=== PATIENT | female | born 1975 | race Asian ===

== ENCOUNTER 2017-11-10 00:08 | Outpatient (CLI) | payer OTHER, SELFPAY ==
--- NOTE | 2017-11-10 13:56 | DI.MAMMO_ITS ---
SYMPTOMS/DIAGNOSIS: 6-MO F/U LEFT BREAST MAMMO LEFT MAMMOGRAM: This is a six-month followup, which is compared with exams from March and April 2018. The breasts are composed of heterogeneously dense fibroglandular tissue, breast density category C. No focal mass is identified. Dense tissue is again noted in the upper outer quadrant. There are no suspicious calcifications. IMPRESSION: Category 2, negative mammogram with benign findings. Bilateral screening should be resumed in six months. [facility] ASSESSMENT OF FINDINGS: Negative with benign findings. Category 2. Patient will receive a letter notifying them of these results. Bi-RADS category C. The breasts are heterogeneously dense, which may obscure small masses.
== END 2017-11-10 00:28 ==
PROVIDERS: PCP Family Medicine; Visit Provider Obstetrics & Gynecology Gynecology
DX: Z12.31 Encounter for screening mammogram for malignant neoplasm of breast (principal); R92.8 Other abnormal and inconclusive findings on diagnostic imaging of breast; N64.59 Other signs and symptoms in breast
CPT/HCPCS: 77061; 77065; G0279

== ENCOUNTER 2018-07-13 16:18 | Outpatient (REF) | payer OTHER, SELFPAY | END 2018-07-13 16:38 | LOC: LBN 16:18 | PROVIDERS: PCP Family Medicine; Visit Provider Nurse Practitioner Women's Health | DX: R30.0 Dysuria (principal) | CPT/HCPCS: 87086 ==

== ENCOUNTER 2018-08-31 18:21 | Outpatient (REF) | payer OTHER, SELFPAY | END 2018-08-31 18:41 | LOC: LBN 18:21 | PROVIDERS: PCP Family Medicine; Visit Provider Obstetrics & Gynecology | DX: N89.8 Other specified noninflammatory disorders of vagina (principal) | CPT/HCPCS: 87480; 87510; 87660 ==

== ENCOUNTER 2018-09-21 20:16 | Outpatient (REF) | payer OTHER, SELFPAY | END 2018-09-21 20:36 | LOC: LBN 20:16 | PROVIDERS: PCP Family Medicine; Visit Provider Obstetrics & Gynecology | DX: B37.9 Candidiasis, unspecified (principal) | CPT/HCPCS: 87480; 87510; 87660 ==

== ENCOUNTER 2018-11-01 09:47 | Outpatient (CLI) | payer OTHER, SELFPAY ==
[2018-11-01 10:42] LABS: Glucose 96 mg/dL (70-100)
[2018-11-02 11:11] LABS: Hep B Core Antibody Negative (NEGAT)
[2018-11-02 11:53] LABS: Syphilis Serology (RPR) Negative (Negative)
[2018-11-02 12:07] LABS: HIV-1/2 Ag & Ab Screen Negative (NEGAT)
[2018-11-02 14:08] LABS: Hepatitis Be Antigen Negative (Negative)
== END 2018-11-01 10:07 ==
PROVIDERS: PCP Family Medicine; Visit Provider Obstetrics & Gynecology
DX: Z11.3 Encounter for screening for infections with a predominantly sexual mode of transmission (principal); Z72.51 High risk heterosexual behavior; Z83.3 Family history of diabetes mellitus; Z11.4 Encounter for screening for human immunodeficiency virus [HIV]
CPT/HCPCS: 82947; 86704; 87389; 86592; 87350; 87480; 87510; 87660

== ENCOUNTER 2018-11-01 10:19 | Outpatient (REF) | payer OTHER, SELFPAY ==
--- NOTE | 2018-11-01 09:40 | PAPFT_PTH ---
PATIENT: Sena Child LOC: [facility] U#:[id number] AGE/SX: 43/F ROOM: RE11/01/[address]: Abi Covarrubias MD : 1975 BED: DIS: 11/01/2018 SPEC #: [id number] RECD: 11/01/18 12:54 STATUS: GERARD REAlbertina #: [id number] ZAK: 11/01/18 09:[address]: Abi Covarrubias DEPT: [facility] Cytology RECD BY: Yohana Granado ENTERED: 11/01/18 12:54 SP TYPE: PAPFT OTHR DR: Miriam Wright Tissues: 1 - CX/ENDOCX FOR PAP SMEARS Procedures: PAP THIN PREP/UVM Screening HPV DNA PROBE Comments: [id number] (CHLAMYDIA/GC)
[2018-11-02 13:38] LABS: GC Result Negative; Specimen Description SEE COMMENTS
[2018-11-02 15:41] LABS: Chlamydia Result Positive
== END 2018-11-01 10:39 ==
LOC: LBN 10:19
PROVIDERS: PCP Family Medicine; Visit Provider Obstetrics & Gynecology
DX: Z12.4 Encounter for screening for malignant neoplasm of cervix (principal); Z11.51 Encounter for screening for human papillomavirus (HPV); N89.8 Other specified noninflammatory disorders of vagina
CPT/HCPCS: 87491; 87591; 88142; 87480; 87510; 87624; 87660

== ENCOUNTER 2018-12-06 17:16 | Outpatient (REF) | payer OTHER, SELFPAY ==
[2018-12-10 13:34] LABS: Chlamydia Result Negative (Negative); GC Result Negative (Negative); Specimen Description CERVIX
== END 2018-12-06 17:36 ==
LOC: LBN 17:16
PROVIDERS: PCP Family Medicine; Visit Provider Obstetrics & Gynecology
DX: Z86.19 Personal history of other infectious and parasitic diseases (principal); Z11.3 Encounter for screening for infections with a predominantly sexual mode of transmission
CPT/HCPCS: 87491; 87591

== ENCOUNTER 2019-08-06 11:59 | Outpatient (REF) | payer OTHER, SELFPAY ==
[2019-08-06 23:51] LABS: COVID-19 RT-PCR UVMMC Result Negative (Negative)
== END 2019-08-06 12:19 ==
LOC: NCHCN 11:59
PROVIDERS: PCP Family Medicine; Visit Provider Family Medicine
DX: Z20.828 Contact with and (suspected) exposure to other viral communicable diseases (principal)
CPT/HCPCS: U0003

== ENCOUNTER 2020-01-30 09:16 | Outpatient (REF) | payer OTHER, SELFPAY ==
[2020-02-01 16:59] LABS: COVID-19 RT-PCR Result NEGATIVE (Negative)
== END 2020-01-30 09:36 ==
LOC: NCHCN 09:16
PROVIDERS: PCP Family Medicine; Visit Provider Nurse Practitioner Family
DX: Z11.59 Encounter for screening for other viral diseases (principal)
CPT/HCPCS: U0003

== ENCOUNTER 2021-05-25 16:48 | Outpatient (REF) | payer OTHER, SELFPAY ==
--- NOTE | 2021-05-25 13:30 | PAPFT_PTH ---
PATIENT: Sena Child LOC: [facility] U#:[id number] AGE/SX: 46/F ROOM: RE05/25/[address]: Cathy Molina : 1975 BED: DIS: 05/25/2021 SPEC #: [id number] RECD: 05/25/21 18:10 STATUS: GERARD REAlbertina #: [id number] ZAK: 05/25/21 13:[address]: Cathy Molina DEPT: [facility] Cytology RECD BY: Yohana Granado ENTERED: 05/25/21 18:10 SP TYPE: PAPFT OTHR DR: Miriam Wright Tissues: 1 - CX/ENDOCX FOR PAP SMEARS Procedures: PAP THIN PREP/UVM Screening HPV DNA PROBE Comments: [id number] (HPV 16 & 18/45)
== END 2021-05-25 16:49 | disposition home or self-care (01) ==
LOC: NCHCN 16:48
PROVIDERS: PCP Family Medicine; Visit Provider Nurse Practitioner Family
DX: Z00.00 Encounter for general adult medical examination without abnormal findings (principal); Z12.4 Encounter for screening for malignant neoplasm of cervix; Z11.51 Encounter for screening for human papillomavirus (HPV)
CPT/HCPCS: 88142; 87624

== ENCOUNTER 2021-06-16 11:16 | Outpatient (REF) | payer OTHER, SELFPAY ==
[2021-06-16 16:38] LABS: Anion Gap 9.2 mmol/L (3-11); BUN 10 mg/dL (7-18); CO2 27.8 mmol/L (21.0-32.0); CREATININE 0.7 mg/dL (0.55-1.02); Calcium 8.7 mg/dL (8.5-10.1); Calculated LDL 137 mg/dL (<100); Chloride 105 mmol/L (98-107); Cholesterol 202 mg/dL (<200); Glucose 85 mg/dL (74-106); HDL Cholesterol 46 mg/dL (40-60); Potassium 3.8 mmol/L (3.5-5.1); Sodium 142 mmol/L (136-145); TSH (W/Ref FT4) 1.01 uIU/mL (0.36-3.74); Triglyceride 95 mg/dL (<150)
== END 2021-06-16 11:17 | disposition home or self-care (01) ==
LOC: NCHCN 11:16
PROVIDERS: PCP Family Medicine; Visit Provider Nurse Practitioner Family
DX: Z00.00 Encounter for general adult medical examination without abnormal findings (principal); R63.5 Abnormal weight gain; Z13.220 Encounter for screening for lipoid disorders
CPT/HCPCS: 80048; 80061; 84443

== ENCOUNTER 2021-07-16 01:22 | Outpatient (CLI) | payer OTHER, SELFPAY ==
--- NOTE | 2021-07-16 08:28 | DI.MAMMO_ITS ---
Exam(s) MAMMO SCREENING EXAM: MAMMO SCREENING CLINICAL HISTORY: SCREENING, [facility], Z00.00 TECHNIQUE: Bilateral full field digital CC and MLO mammographic images were obtained with 3D tomosyn thesis and utilizing computer aided detection (CAD). COMPARISON: Available for comparison. FINDINGS: Masses/Architectural Distortion: None seen. Microcalcifications: No suspicious pleomorphic-type are seen. Skin Thickening/Nipple Retraction: None. IMPRESSION: 1. No significant interval change with no specific features of malignancy noted. 2. Unless there is more urgent need, screening mammography is recommended, as per [place] [employer] guidelines. BI-RADS Category 1 - Negative Breast Density - Category C - Heterogeneously dense Breast density category C or D implies that the patient has dense breast tissue. Dense breast tissue is very common and is not abnormal but dense breast tissue can make it harder to find cancer on a ma mmogram. Also, dense breast tissue may increase their breast cancer risk. This information about the result of the mammogram report was provided to the patient to raise their awareness. Use this report when you speak with the patient about their risks for breast cancer, which includes their family hist ory. At that time, you may recommend for more screening tests (Ultrasound or MRI) as they might be us eful based on their risk. A negative radiographic report should not delay biopsy if a dominant or clinically suspicious mass is present. Up to ten percent of cancers are not identified on mammography. A negative report may reinforce clinical impression. Adenosis and dense breasts may obscure an underlying neoplasm. False positive reports average 6 to 10%. Patient will receive a letter notifying them of these results.
== END 2021-07-16 01:42 ==
PROVIDERS: PCP Family Medicine; Visit Provider Nurse Practitioner Family
DX: Z00.00 Encounter for general adult medical examination without abnormal findings (principal); Z12.31 Encounter for screening mammogram for malignant neoplasm of breast
CPT/HCPCS: 77063; 77067

== ENCOUNTER 2021-08-27 15:24 | Outpatient (CLI) | payer OTHER, SELFPAY ==
--- NOTE | 2021-08-27 12:20 | DI.RAD_ITS ---
Exam(s) XR CHEST 2V PA LATERAL EXAM: XR CHEST 2V PA LATERAL CLINICAL HISTORY: INH MEDICATION TREATMENT COMPLETED AFTER + PPD. TECHNIQUE: 2D digital imaging was performed. COMPARISON: No exams were available for comparison FINDINGS: 2 views: Heart size is normal. The mediastinum is not widened. Lungs are clear. No infiltrates nor pleural effusions. IMPRESSION: No acute pulmonary findings. DATA REPOSITORY: RADIATION DOSE DELIVERED:
== END 2021-08-27 15:44 ==
PROVIDERS: PCP Family Medicine; Visit Provider Nurse Practitioner Family
DX: Z09 Encounter for follow-up examination after completed treatment for conditions other than malignant neoplasm (principal)
CPT/HCPCS: 71046

== ENCOUNTER 2022-09-23 00:22 | Outpatient (CLI) | payer BC, SELFPAY ==
--- NOTE | 2022-09-23 08:33 | DI.MAMMO_ITS ---
Exam(s) MAMMO SCREENING EXAM: MAMMO SCREENING CLINICAL HISTORY: screening TECHNIQUE: Bilateral full field digital CC and MLO mammographic images were obtained with 3D tomosyn thesis and utilizing computer aided detection (CAD). COMPARISON: Available for comparison. FINDINGS: Masses/Architectural Distortion: There are few well-circumscribed nodules in the breast. No suspicio us nodules or areas of architectural distortion are seen. Microcalcifications: No suspicious pleomorphic-type are seen. Skin Thickening/Nipple Retraction: None. IMPRESSION: 1. No significant interval change with no specific features of malignancy noted. 2. Unless there is more urgent need, screening mammography is recommended, as per [place] [employer] guidelines. BI-RADS Category 2 - Benign Findings Breast Density - Category C - Heterogeneously dense Breast density category C or D implies that the patient has dense breast tissue. Dense breast tissue is very common and is not abnormal but dense breast tissue can make it harder to find cancer on a ma mmogram. Also, dense breast tissue may increase their breast cancer risk. This information about the result of the mammogram report was provided to the patient to raise their awareness. Use this report when you speak with the patient about their risks for breast cancer, which includes their family hist ory. At that time, you may recommend for more screening tests (Ultrasound or MRI) as they might be us eful based on their risk. A negative radiographic report should not delay biopsy if a dominant or clinically suspicious mass is present. Up to ten percent of cancers are not identified on mammography. A negative report may reinforce clinical impression. Adenosis and dense breasts may obscure an underlying neoplasm. False positive reports average 6 to 10%. Patient will receive a letter notifying them of these results.
== END 2022-09-23 00:42 ==
PROVIDERS: PCP Family Medicine; Visit Provider Advanced Practice Midwife
DX: Z12.31 Encounter for screening mammogram for malignant neoplasm of breast (principal)
CPT/HCPCS: 77063; 77067

== ENCOUNTER 2023-01-30 15:50 | Outpatient (REF) | payer BC, SELFPAY ==
[2023-01-30 18:42] LABS: HCT 45.7 % (36.0-46.0); HGB 15.8 g/dL (11.2-15.7); MCH 29.9 pg (27.0-33.0); MCHC 34.6 % (32.0-36.0); MCV 87 fL (80-95); MPV 10.1 fL (8.0-11.0); Platelet Count 342 10^3/uL (130-400); RBC 5.28 10^6/uL (3.93-5.22); RDW 11.9 % (11.7-14.6); RDW-SD 37.5 fL; WBC 8.67 10^3/uL (4.4-10.8)
[2023-01-30 18:55] LABS: ALT 42 U/L (14-59); AST 29 U/L (15-37); Alkaline Phosphatase 74 U/L (46-116); Anion Gap 4.8 mmol/L (3-11); BUN 8 mg/dL (7-18); Bilirubin, Total 0.5 mg/dL (0.2-1.0); CO2 30.2 mmol/L (21.0-32.0); Calcium 9.9 mg/dL (8.5-10.1); Calculated LDL 132 mg/dL (<100); Chloride 103 mmol/L (98-107); Cholesterol 209 mg/dL (<200); Estimated GFR 70.36 (mL/min/1.73m2); Glucose 138 mg/dL (74-106); HDL Cholesterol 48 mg/dL (40-60); Potassium 3.8 mmol/L (3.5-5.1); Sodium 138 mmol/L (136-145); Total Protein 8.8 g/dL (6.4-8.2); Triglyceride 146 mg/dL (<150)
== END 2023-01-30 15:51 | disposition home or self-care (01) ==
LOC: NCHCN 15:50
PROVIDERS: PCP Family Medicine; Visit Provider Nurse Practitioner Family
DX: R00.0 Tachycardia, unspecified (principal); N95.8 Other specified menopausal and perimenopausal disorders; Z13.220 Encounter for screening for lipoid disorders
CPT/HCPCS: 80053; 80061; 85027

== ENCOUNTER → 2023-03-30 03:03 | Outpatient (CLI) | payer OTHER, SELFPAY ==
--- NOTE | 2023-03-30 13:50 | DI.MRI_ITS ---
Exam(s) MR UPPER JOINT RT WO EXAM: MR UPPER JOINT RT WO CLINICAL HISTORY: INJURY,RT SHOULDER PAIN,M25.519,? BICEPS TENDON TEAR/FRAY TECHNIQUE: Multiplanar multisequence MRI of the shoulder was performed. COMPARISON: There are no plain films of the shoulder available at the time of this MRI interpretatio n. FINDINGS: MARROW:There is no evidence of fracture, Hill-Sachs deformity, nor ominous osseous lesions. There is small degenerative subarticular cysts in the posterolateral aspect of the humeral head, measuring 7 x 5 x 4 mm. There is no surrounding bone edema in the humeral head. GLENOHUMERAL JOINT: No joint effusion nor obvious loose intra-articular bodies. No chondral defects. No osteophytes. No degenerative subarticular cysts seen in the osseous glenoid. No evidence of cap sular tear. The inferior glenohumeral ligament is intact. ROTATOR CUFF MECHANISM: AC JOINT/ACROMIUM: No obvious degenerative changes in the AC joint.. There is no evidence of os acromiale. Supraspinatus: Intact. No evidence of tear nor muscle atrophy. Infraspinatus: Slight thickening of the tendon and tendinosis signal evident but no full-thickness te ar. No fluid in the overlying subacromial bursa. Teres Minor: Intact. No evidence of tear nor muscle atrophy. Subscapularis/anterior cuff: Intact. No abnormal signal at the level of the multipennate insertional fibers. No significant tear nor atrophy. BICEPS TENDON: Exhibits normal position within the intertubercular groove. However, there appears to be an element of lung to 2 normal split tearing of the tendon within the intertubercular groove. No full-thickness tear evident. There is mild amount of fluid in the tendon sheath within the intertubercular groove. LABRUM: There is no abnormal signal in the superior labrum posterior to the biceps insertion site. N o evidence of SLAP tear. The posterior labrum is intact. Inferior labrum is intact. There is sligh t irregularity of the anterior superior labrum but no prominent tear. LABROLIGAMENTOUS/CAPSULAR COMPLEX: There is no evidence of avulsion of the anterior-inferior labrum, capsule, inferior glenohumeral liga ment complex nor disruption of the scapular periosteum to suggest the presence of a Bankart lesion. QUADRILATERAL SPACE: No evidence of mass in the region of the axillary nerve and dorsal circumflex hu meral vessels. Visualized triceps muscle at this level appears unremarkable. IMPRESSION: 1. There is tendinosis signal in the infraspinatus tendon with increased signal in thickness of the t endon at its insertional aspect but no evidence of full-thickness tear. The supraspinatus appears un remarkable as does the subscapularis/anterior cuff 2. There is an element of longitudinal split tearing of the biceps tendon within the intertubercular groove. There is no full-thickness tear nor retraction. There is mild tenosynovitis. There are no loose intra-articular bodies within the biceps tendon sheath. 3. Mild irregularity of the anterosuperior labrum but without a distinct obvious labral tear. Also n o paralabral cyst evident. DATA REPOSITORY:
== END ==
PROVIDERS: PCP Family Medicine; Visit Provider Nurse Practitioner Family
DX: S46.211A Strain of muscle, fascia and tendon of other parts of biceps, right arm, initial encounter (principal); X58.XXXA Exposure to other specified factors, initial encounter; Y99.0 Civilian activity done for income or pay
CPT/HCPCS: 73221

== ENCOUNTER 2024-03-07 15:04 | Outpatient (REF) | payer BC, SELFPAY ==
--- NOTE | 2024-03-07 11:40 | PAPFT_PTH ---
PATIENT: Sena Child LOC: [facility]#:[id number] AGE/SX: 49/F ROOM: RE03/07/[address]: Ingris Mccoy : 1975 BED: DIS: 03/07/2024 SPEC #: [id number] RECD: 03/07/24 18:14 STATUS: POLAAndrew REQ #: [id number] ZAK: 03/07/24 11:[address]: Ingris Mccoy DEPT: [facility] Cytology RECD BY: Yohana Granado ENTERED: 03/07/24 18:14 SP TYPE: PAPFT OTHR DR: Miriam Wright Tissues: 1 - CX/ENDOCX FOR PAP SMEARS Procedures: PAP THIN PREP/UVM Screening HPV DNA PROBE Comments: [id number] (HPV 16 & 18/45)
--- OUTSIDE RECORDS SUMMARY | 2024-03-07 15:11 | XMS_ITS | Encounter Summary ---
Author Organization [facility] Address [address] [place] [address] Care Team Providers Care Wind Turbine Installer Name Role Phone Miriam Wright MD Primary Care Provider [phone] Encounter Details Date Type Department Care Team (Late st Contact Info) Description 01/30/2020 Lab Requisition [facility] Pathology & Laboratory Medicine - [address] [id number] Outr Resulting Lab, Provider Social History Tobacco Use Types Packs/Day Years Used Date Smoking Tobacco: Never Assessed Comments Unknown Sex and Gender Information Value Date Recorded Sex Assigned at Not on file Legal Sex Female 18:51 EST Gender Identity Not on file Sexual Orientation Not on file documented as of this encounter Plan of Treatment Not on file documented as of this encounter Procedures Procedure Name Priority Date/Time Associated Diagnosis Comments DO NOT ORDER STANDALONE - BROAD COVID TEST Today 01/30/2020 9:08 EST COVID-19 TESTING Routine 01/30/2020 9:08 EST documented in this encounter Results * DO NOT ORDER STANDALONE - BROAD COVID TEST (01/30/2020 9:08 EST) COVID-19 rt-PCR Result NEGATIVE Negative 02/01/2020 16:54 EST [facility] Comment: 2019-novel Coronavirus (2019-nCoV) not detected by the qRT-PCR assay. Consider testing for other respiratory viruses or re-collecting for 2019-nCoV testing. Note: Optimum timing for peak viral levels during infections caused by 2019-nCoV have not been determined. Collection of multiple specimens from the same patient may be necessary to detect the virus. Limitations Positive results are indicative of active infection with SARS-CoV-2 but do not rule out bacterial infection or co-infection with other viruses. The agent detected may not be the definite cause of disease. In addition, detection of viral RNA may not indicate the presence of infectious virus or that SARS-CoV-2 is the causative agent for clinical symptoms. Negative results do not preclude SARS-CoV-2 infection and should not be used as the sole basis for patient management decisions. Negative results must be combined with clinical observations, patient history, and epidemiological information. False negative results may also occur if amplification inhibitors are present in the specimen or if inadequate numbers of organisms are present in the specimen. Optimum specimen types and timing for peak viral levels during infections caused by SARS-CoV-2 have not been fully determined. Collection of multiple specimens (types and time points) from the same patient may be necessary to detect the virus. The test was validated for use with upper respiratory specimens obtained via nasopharyngeal or oropharyngeal swabs in VTM, UTM, M4, M5, M6, saline, and MTM media. The performance of this test has not been established for other specimens. Specimens collected using other FDA recommended Specimen Collection Materials listed in the FDA COVID-19 [employer] communication (May 23, 2019) are processed with the caveat that they were not all validated for use with this test and the result must be interpreted in this context. Furthermore, a false negative results may occur if a specimen is improperly collected, transported or handled. If the virus mutates in the RT-PCR target region, SARS-CoV-2 may not be detected or may be detected less predictably. Inhibitors or other types of interference may produce a false negative result. An interference study evaluating the effect of common cold medications was not performed. This test is not FDA-cleared but its performance characteristics were established by our CLIA-certified, CAP-accredited, high complexity laboratory in accordance with CLIA regulations, [employer] [place] [employer] (CAP) guidelines (May 16, 2019), and FDA guidance (Apr 27, 2019). This test is only for use under the Food and Drug Administration's Emergency Use Authorization. Swab ENTIRE NASOPHARYNX / Unknown 01/30/2020 9:08 EST 01/30/2020 22:50 EST us Provider Outr Resulting Lab MICROBIOLOGY - GENER AL ORDERABLES Final Result [facility] [place] * COVID-19 TESTING (01/30/2020 9:08 EST) COVID-19 rt-PCR Result NEGATIVE Negative 02/01/2020 16:54 EST [facility] Comment: 2019-novel Coronavirus (2019-nCoV) not detected by the qRT-PCR assay. Consider testing for other respiratory viruses or re-collecting for 2019-nCoV testing. Note: Optimum timing for peak viral levels during infections caused by 2019-nCoV have not been determined. Collection of multiple specimens from the same patient may be necessary to detect the virus. Limitations Positive results are indicative of active infection with SARS-CoV-2 but do not rule out bacterial infection or co-infection with other viruses. The agent detected may not be the definite cause of disease. In addition, detection of viral RNA may not indicate the presence of infectious virus or that SARS-CoV-2 is the causative agent for clinical symptoms. Negative results do not preclude SARS-CoV-2 infection and should not be used as the sole basis for patient management decisions. Negative results must be combined with clinical observations, patient history, and epidemiological information. False negative results may also occur if amplification inhibitors are present in the specimen or if inadequate numbers of organisms are present in the specimen. Optimum specimen types and timing for peak viral levels during infections caused by SARS-CoV-2 have not been fully determined. Collection of multiple specimens (types and time points) from the same patient may be necessary to detect the virus. The test was validated for use with upper respiratory specimens obtained via nasopharyngeal or oropharyngeal swabs in VTM, UTM, M4, M5, M6, saline, and MTM media. The performance of this test has not been established for other specimens. Specimens collected using other FDA recommended Specimen Collection Materials listed in the FDA COVID-19 [employer] communication (May 23, 2019) are processed with the caveat that they were not all validated for use with this test and the result must be interpreted in this context. Furthermore, a false negative results may occur if a specimen is improperly collected, transported or handled. If the virus mutates in the RT-PCR target region, SARS-CoV-2 may not be detected or may be detected less predictably. Inhibitors or other types of interference may produce a false negative result. An interference study evaluating the effect of common cold medications was not performed. This test is not FDA-cleared but its performance characteristics were established by our CLIA-certified, CAP-accredited, high complexity laboratory in accordance with CLIA regulations, [employer] [place] [employer] (CAP) guidelines (May 16, 2019), and FDA guidance (Apr 27, 2019). This test is only for use under the Food and Drug Administration's Emergency Use Authorization. Performing Lab [facility] 02/01/2020 16:54 EST [facility] Swab 01/30/2020 9:08 EST 01/30/2020 22:50 EST us Provider Outr Resulting Lab MICROBIOLOGY - GENER AL ORDERABLES Final Result [facility] [address] [place] [address] [facility] [place] documented in this encounter Visit Diagnoses Not on filedocumented in this encounter Care Teams Wind Turbine Installer Relationship Specialty Start Date End Date Miriam Wright MD [address] [place] [phone] PCP - General 10/23/14 documented as of this encounter
--- OUTSIDE RECORDS SUMMARY | 2024-03-07 15:11 | XMS_ITS | Referral Summary ---
Author Organization [facility] Address [address] [place] [address] Care Team Providers Care Account Services Coordinator Name Role Phone Miriam Wright MD Primary Care Provider [phone] Social History Tobacco Use Types Packs/Day Years Used Date Smoking Tobacco: Never Assessed Comments Unknown Sex and Gender Information Value Date Recorded Sex Assigned at Not on file Legal Sex Female 18:51 EST Gender Identity Not on file Sexual Orientation Not on file Plan of Treatment Not on file Care Teams Account Services Coordinator Relationship Specialty Start Date End Date Miriam Wright MD [address] [place] [address] [address] [place] [id number] PCP - General 10/23/14
--- OUTSIDE RECORDS SUMMARY | 2024-03-07 15:11 | XMS_ITS | Encounter Summary ---
Author Organization [facility] Address [address] [place] [address] Care Team Providers Care Advertising Material Distributor Name Role Phone Md GUI Lynn Primary Care Provider Unavaila ble Encounter Details Date Type Department Care Team (Latest Contact Info) Description 10/21/2014 10:21 EDT - 10/21/2014 23:59 EDT Hospital Encounter [address] [address] Unknown, Provider, Discharge Disposition: Home or Self Care Social History Tobacco Use Types Packs/Day Years Used Date Smoking Tobacco: Never Assessed Comments Unknown Sex and Gender Information Value Date Recorded Sex Assigned at Not on file Legal Sex Female 18:51 EST Gender Identity Not on file Sexual Orientation Not on file documented as of this encounter Discharge Disposition Disposition Code Departure Means Destination Home or Self Senior Living documented in this encounter Plan of Treatment Not on file documented as of this encounter Visit Diagnoses Not on filedocumented in this encounter Care Teams Advertising Material Distributor Relationship Specialty Start Date End Date Md Lynn MD PCP - General 03/01/10 10/22/14 documented as of this encounter
--- OUTSIDE RECORDS SUMMARY | 2024-03-07 15:11 | XMS_ITS | Encounter Summary ---
Author Organization [facility] Address [address] [place] [address] Care Team Providers Care Gas Truck Driver Name Role Phone Miriam Wright MD Primary Care Provider [phone] Encounter Details Date Type Department Care Team (Latest Contact Info) Description 05/26/2021 Lab Requisition [facility] Pathology & Laboratory Medicine - [facility] [address] [place] [address] Cathy Molina FNP [address] [place], [place] [id number] Encounter for general adult medical examination without abnormal findings; Encounter for screening for malignant neoplasm of cervix; Encounter for screening for human papillomavirus (HPV) Social History Tobacco Use Types Packs/Day Years [...] Procedure Name Priority Date/Time Associated Diagnosis Comments PAP TEST Today 05/25/2021 13:30 EDT Encounter for general adult medical examination without abnormal findings Encounter for screening for malignant neoplasm of cervix Encounter for screening for human papillomavirus (HPV) HPV GENOTYPES 16 AND 18/45 Today 05/25/2021 13:30 EDT Encounter for general adult medical examination without abnormal findings Encounter for screening for malignant neoplasm of cervix Encounter for screening for human papillomavirus (HPV) HPV DNA DETECTION WITH GENOTYPING, PCR Today 05/25/2021 13:30 EDT Encounter for general adult medical examination without abnormal findings Encounter for screening for malignant neoplasm of cervix Encounter for screening for human papillomavirus (HPV) documented in this encounter Results * HPV GENOTYPES 16 AND 18/45 (05/25/2021 13:30 EDT) HPV High Risk type 16, PCR Negative Negative 06/03/2021 14:39 EDT [facility] HPV18/45 RNA (HPV18/45) Negative Negative 06/03/2021 14:39 EDT [facility] Papanicolaou smear specimen (specimen) CERVIX UTERI STRUCTURE / Unknown 05/25/2021 13:30 EDT 05/31/2021 17:36 EDT Cathy Molina [facility] MICROBIOLOGY - GENERAL ORDERAB LES Final Result Performing Organization Address City/[facility] Co de Phone Number [facility] [address] [place] [address] * (ABNORMAL) HUMAN PAPILLOMAVIRUS (HPV) DETECTION-HIGH RISK TYPES (05/25/2021 13:30 EDT) HPV other High Risk types, PCR Positive( A) Negative 06/03/2021 14:39 EDT [facility] Comment:E6 OR E7 mRNA from o ne or more types of HPV types 16,18,31,33,35,39,45,51,52,56,58,59,66, and 68 is detected by signal operator linguist mediated amplification. High and intermediate risk HPV types are associated with most squamous intraepithelial lesions and cervical cancers. Papanicolaou smear specimen (specimen) CERVIX UTERI STRUCTURE / Unknown 05/25/2021 13:30 EDT 05/31/2021 17:36 EDT Cathy Molina [facility] MICROBIOLOGY - GENERAL ORDERAB LES Final Result Performing Organization Address City/[facility]/ZIP Co de Phone Number [facility] [address] [place] [phone] * PAP TEST (05/25/2021 13:30 EDT) Specimens A. Cervix and/or Endocervix , ThinPrep Imaging System with Manual Evaluation 06/03/2021 14:40 [facility] Specimen Adequacy Satisfactory for Evaluation - transformation zone component present 06/03/2021 14:40 [facility] General Categorization Negative for intraepithelial lesion or malignancy 06/03/2021 14:40 [facility] Descriptive Diagnosis Reactive cellular changes associated with inflammation present (includes repair). 06/03/2021 14:40 [facility] Attestation By the signature below, the attending physician certifies that they have personally conducted a gross and/or microscopic examination of the described specimens and rendered or confirmed the above diagnosis. 06/03/2021 14:40 [facility] at 1439 Clinical History See below 06/04/19 14:40 [facility] HPV The result for the Human Papillomavirus (HPV) Detection-High Risk Types is Positive . E6 OR E7 mRNA from one or more types of HPV types 16,18,31,33,35,39 ,45,51,52,56,58,5 9,66, and 68 is detected by signal operator linguist mediated amplification. High and intermediate risk HPV types are associated with most squamous intraepithelial lesions and cervical cancers. Testing was performed on specimen [id number] and was resulted on 06/02/2021 0711 EDT by CEE, LAB INSTRUMENT RESULTS IN 06/03/2021 14:40 [facility] Genotyping 16 & 18/45 The results for the HPV Genotypes 16 and 18/45 are Negative for the HPV16 RNA and Negative for the HPV18/45 RNA (HPV18/45). Testing was performed on specimen [id number] and was resulted on 06/03/2021 1434 EDT by CEE, LAB INSTRUMENT RESULTS IN 06/03/2021 14:40 [facility] Performing Lab [facility] 06/03/2021 14:40 [facility] Scanned Images 06/03/2021 14:40 [facility] Papanicolaou smear specimen (specimen) CERVIX UTERI STRUCTURE / Unknown 05/25/2021 13:30 EDT 05/26/2021 11:44 EDT Cathy Jesse ELECTRIC REFRIGERATOR SERVICER PATHOLOGY ORDERABLES Final Res ult [facility] [address] [place] [address] documented in this encounter Visit Diagnoses Diagnosis Encounter for general adult medical examination without abnormal findings Unspecified general medical examination Encounter for screening for malignant neoplasm of cervix Screening for malignant neoplasm of the cervix Encounter for screening for human papillomavirus (HPV) Special screening examination for human papillomavirus (HPV) documented in this encounter Care Teams Gas Truck Driver Relationship Specialty Start Date End Date Miriam Wright MD [address] [place] [phone] PCP - General 10/23/14 documented as of this encounter
--- OUTSIDE RECORDS SUMMARY | 2024-03-07 15:11 | XMS_ITS | Encounter Summary ---
Author Organization [facility] Address [address] [place] [address] Care Team Providers Care Therapy Coordinator Name Role Phone Miriam Wright MD Primary Care Provider [phone] Encounter Details Date Type Department Care Team (Late st Contact Info) Description 03/28/2016 Results Only [facility] [phone] Holley Joseph MD [address] [place] [address] [place] [address] Social History Tobacco Use Types Packs/Day Years [...] Name Priority Date/Time Associated Diagnosis Comments PAP TEST- RESULT ONLY Routine 03/28/2016 0:00 EST documented in this encounter Results * PAP TEST- RESULT ONLY (03/28/2016 0:00 EST) Pathology Report: CYTOPATHOLOGY REPORT Reports generated via electronic interface contain original data; however they are lacking the format of the original report. Caution should be taken when reading/interpreti ng unformatted reports. Name: ? EDY MARIE ? Accession #: ? [id number] ? : ? 1975 (Age: 41) ??F ?Collect Date: ? 03/28/2016 ? Location: ? [facility] ? Receive Date: ? 03/29/2016 ? Provider: HOLLEY JOSEPH MD Copy to: MIRIAM WRIGHT MD ? Final Report SPECIMEN ADEQUACY ? Satisfactory for Evaluation - transformation zone component present GENERAL CATEGORIZATION ? Negative for Intraepithelial Lesion or Malignancy INTERPRETATION ? Fungal organisms present morphologically consistent with Annette species. Last Menstrual Period: 03/12/2016 Hormonal/Contracep tive status: Yes: Family planning Specimen/Source: ??Pap Test, Cervix, ThinPrep Imaging System with manual evaluation Document reviewed and electronically signed by: ? Kae Patton, ARNOL(ASCP) ? Report ??Date: 04/01/2016 16:37 HPV with Pap Test ? Date Ordered: ? 04/01/2016 ? Status: ?? Signed Out ?Date Complete: ? 04/04/2016 ? By: ??System Interface ? Date Reported: ? 04/04/2016 ? Interpretation RESULT: Negative for HPV. No E6 or E7 mRNA is detected from HPV types 16,18,31,33,35, 39,45,51,52,56,58, 59,66, and 68 by ground water contractor mediated amplification. Comments Document reviewed and electronically signed by: ? System Interface ? Report date: 04/04/2016 By the signature above, the attending physician certifies that he/she has personally conducted a gross and/or microscopic examination of the described specimens and rendered or confirmed the above diagnosis. End of Report [facility] 03/28/2016 03/29/2016 us Holley Joseph MD PATHOLOGY ORDERABLES Final Resu lt [facility] [address] [place] [address] documented in this encounter Visit Diagnoses Not on filedocumented in this encounter Care Teams Therapy Coordinator Relationship Specialty Start Date End Date Miriam Wright MD [address] [place] [phone] PCP - General 10/23/14 documented as of this encounter
--- OUTSIDE RECORDS SUMMARY | 2024-03-07 15:11 | XMS_ITS | Encounter Summary ---
Author Organization [facility] Address [address] [place] [address] Care Team Providers Care Stripper And Taper Name Role Phone Miriam Wright MD Primary Care Provider [phone] Encounter Details Date Type Department Care Team ([facility] st Contact Info) Description 11/01/2018 Results Only [facility] [phone] Nena Covarrubias MD [address] [place] [address] [place] [phone] Social History Tobacco Use Types Packs/Day Years [...] Diagnosis Comments PAP TEST- RESULT ONLY Routine 11/01/2018 0:00 EDT documented in this encounter Results * PAP TEST- RESULT ONLY (11/01/2018 0:00 EDT) Pathology Report: CYTOPATHOLOGY REPORT Reports generated via electronic interface contain original data; however they are lacking the format of the original report. Caution should be taken when reading/interpreti ng unformatted reports. Name: ? EDY MARIE ? Accession #: ? [id number] ? : ? 1975 (Age: 43) ??F ?Collect Date: ? 11/01/2018 ? Location: ? [facility] ? Receive Date: ? 11/05/2018 ? Provider: NENA COVARRUBIAS MD Copy to: MIRIAM WRIGHT MD ? Final Report SPECIMEN ADEQUACY ? Satisfactory for Evaluation - transformation zone component present - scant squamous epithelial component secondary to excessive blood GENERAL CATEGORIZATION ? Negative for Intraepithelial Lesion or Malignancy ?? Last Menstrual Period: 10/08/18 Hormonal/Contracep tive status: Yes Infection History: Neg for HPV: 08/2012 Other: Additional clinical information: 01/2010 NEG Specimen/Source: ??Pap Test, Cervix/Endocervix, ThinPrep Imaging System with manual evaluation Document reviewed and electronically signed by: ? ARNOL Guidry(ASCP) ? Report ??Date: 11/07/2018 14:39 HPV with Pap Test ? Date Ordered: ? 11/07/2018 ? Status: ?? Signed Out ?Date Complete: ? 11/08/2018 ? By: ??System Interface ? Date Reported: ? 11/08/2018 ? Interpretation RESULT: POSITIVE FOR HIGH OR INTERMEDIATE RISK HPV. E6 OR E7 mRNA from one or more types of HPV types 16,18,31, 33,35,39,45,51,52, 56,58,59,66, and 68 is detected by tooth grinder mediated amplification. High and intermediate risk HPV types are associated with most squamous intraepithelial lesions and cervical cancers. Comments Document reviewed and electronically signed by: ? System Interface ? Report date: 11/08/2018 By the signature above, the attending physician certifies that he/she has personally conducted a gross and/or microscopic examination of the described specimens and rendered or confirmed the above diagnosis. End of Report [facility] 11/01/2018 11/05/2018 us Nena Covarrubias MD PATHOLOGY ORDERABLES Final Resul t [facility] [address] [place] [address] documented in this encounter Visit Diagnoses Not on filedocumented in this encounter Care Teams Stripper And Taper Relationship Specialty Start Date End Date Miriam Wright MD [address] [place] [phone] PCP - General 10/23/14 documented as of this encounter
--- OUTSIDE RECORDS SUMMARY | 2024-03-07 15:11 | XMS_ITS | Encounter Summary ---
Author Organization [facility] [place] [address] Care Team Providers Care Information And Data Architect Analyst Name Role Phone Miriam Wright MD Primary Care Provider [phone] Encounter Details Date Type Department Care Team (Late st Contact Info) Description 10/19/2014 Hospital Encounter [place] [phone] Alexia Gupta MD [facility] DR [place] [address] Social History Tobacco Use Types Packs/Day Years Used Date Smoking Tobacco: Never Smokeless Tobacco: Never Sex and Gender Information Value Date Recorded Sex Assigned at Not on file Gender Identity Not on file Sexual Orientation Not on file documented as of this encounter Last Filed Vital Signs Vital Sign Reading Time Taken Comments Blood Pressure 101/56 10/19/2014 6:30 PM EDT Pulse 113 10/19/2014 6:30 PM EDT Temperature 38 ??C (100.4 ??F) 10/19/2014 6:00 PM EDT Respiratory Rate 24 10/19/2014 6:30 PM EDT Oxygen Saturation 97% 10/19/2014 6:30 PM EDT Inhaled Oxygen Concentration - - Weight - - Height - - Body Mass Index - - documented in this encounter Progress Notes * Renae Coburn RN - 10/19/2014 6:01 PM EDT 1724 Patient Received from endoscopy after having a ERCP. Patient placed on monitors and alarms set. A second IV has been placed by to give an additional liter of IVF. LR infusing. 1800 1500cc of addition IV fluid infused. Dr. Gupta in to see patient. [facility] Monge made aware of patient's VS and has oked patient to go by ambulance.183 Patient meets discharge criteria. Report given to [facility] RN about endo by private security guard. Report given to Porfirio EMT and patient moved onto ambulance stretcher and discharged from PACU. documented in this encounter H&P Notes * Alexia Gupta MD - 10/19/2014 4:00 PM EDT Gastroenterology and Hepatology Pre-Procedure History and Physical Exam Procedure: ERCP: Indication: bile duct stone Patient admitted to [facility] yesterday for abdominal pain, elevated LFT's, jaundice. US and CT showed gallstones and CBD stone. Patient became febrile today to 38.5. She received cipro 400/flagyl 500 IV at 8am. EXAM: HEENT: Airway examined, oropharynx clear Mallampati Score: II (soft palate, uvula, fauces visible) LUNGS: Clear to auscultation HEART: Regular rate and rhythm, normal S1, S2 ABDOMEN: Normal bowel sounds, soft, tender epigastrium, non distended, A/P Proceed with the planned endoscopic procedure. ASA 1 - Normal health patient Sedation Plan: anesthesia Risks and benefits of the procedure explained to the patient. Consent signed. documented in this encounter Plan of Treatment Scheduled Orders Name Type Priority Associated Diagnoses Orde r Schedule XR ERCP Imaging Routine Once PRN (for Radiant use) for 1 Occurrences starting 10/19/2014 until 10/19/2014 documented as of this encounter Procedures Procedure Name Priority Date/Time Associated Diagnosis Comments ERCP (WRVU 5.85) 10/19/2014 4:28 PM EDT ? documented in this encounter Visit Diagnoses Not on filedocumented in this encounter Administered Medications Inactive Administered Medications - up to 3 most recent administrations Medication Order MAR Action Action Date Dose Rate Site indomethacin (INDOCIN) suppository 100 mg 100 mg, Rectal, ONCE, 1 dose, On 10/19/14 at 1715, Endoscopy (Day of Procedure), Routine Given 10/19/2014 5:15 PM EDT 100 mg ondansetron (ZOFRAN) 4 mg/2 mL injection 1 dose, Starting on 10/19/14 at 1745, Until 10/19/14 at 1750, RENAE COBURN: cabinet override ondansetron (ZOFRAN) injection 4 mg 4 mg, Intravenous, EVERY 30 MIN PRN, Starting on 10/19/14 at 1748, Until 10/19/14 at 1843, Nausea, May repeat 4 mg once in 30 minutes. If multiple antiemetics ordered, use ondansetron first and if ineffective use prochlorperazine second and if ineffective use promethazine, PACU Recovery Given 10/19/2014 5:50 PM EDT 4 mg documented in this encounter Care Teams Information And Data Architect Analyst Relationship Specialty Start Date End Date Miriam Wright MD [address] [place] [address] PCP - General 10/06/14 documented as of this encounter
--- OUTSIDE RECORDS SUMMARY | 2024-03-07 15:11 | XMS_ITS | Encounter Summary ---
Author Organization [facility] [place] [address] Care Team Providers Care Blow Torch Burner Name Role Phone Miriam Wright MD Primary Care Provider [phone] Encounter Details Date Type Department Care Team (Late st Contact Info) Description 10/18/2014 Orders [place] [phone] Julio Jay MD [facility] [place] [address] Social History Tobacco Use Types Packs/Day Years Used Date Smoking Tobacco: Never Assessed Sex and Gender Information Value Date Recorded Sex Assigned at Not on file Gender Identity Not on file Sexual Orientation Not on file documented as of this encounter Plan of Treatment Not on file documented as of this encounter Procedures Procedure Name Priority Date/Time Associated Diagnosis Comments FILM LIBRARY STORAGE ONLY ULTRASOUND STUDY Routine 10/18/2014 10:35 AM EDT documented in this encounter Results * Film Library- Storage only Ultrasound Study (10/18/2014 10:35 AM EDT) Anatomical Region Laterality Modality Other 10/18/2014 10:3 5 AM EDT Narrative 10/19/2014 10:46 AM EDT This is a Non-reportable exam Procedure Note CEE, UNSIGNED REPORT - 10/19/2014 This is a Non-reportable exam Julio Jay MD IMG FILM LIBRARY ORDERABLES documented in this encounter Visit Diagnoses Not on filedocumented in this encounter Care Teams Blow Torch Burner Relationship Specialty Start Date End Date Miriam Wright MD [facility] [address] [facility] [address] [place] [address] PCP - General 10/06/14 documented as of this encounter
--- OUTSIDE RECORDS SUMMARY | 2024-03-07 15:11 | XMS_ITS | Encounter Summary ---
Author Organization [facility] Address [address] [place] [address] Care Team Providers Care Manager Of Manufacturing Name Role Phone Md GUI Lynn Primary Care Provider Unavaila ble Encounter Details Date Type Department Care Team (Late st Contact Info) Description 09/20/2012 Results Only [facility] Services - [facility] [address] [place], [place] [phone] Holley Joseph MD [address] [place] [address] [place] [address] Social History Tobacco Use Types Packs/Day Years [...] Diagnosis Comments PAP TEST- RESULT ONLY Routine 09/20/2012 0:00 EDT documented in this encounter Results * PAP TEST- RESULT ONLY (09/20/2012 0:00 EDT) Pathology Report: CYTOPATHOLOGY REPORT Reports generated via electronic interface contain original data; however they are lacking the format of the original report. Caution should be taken when reading/interpreti ng unformatted reports. Name: ? EDY MARIE ? Accession #: ? [id number] ? : ? 1975 (Age: 37) ??F ?Collect Date: ? 09/20/2012 ? Location: ? [facility] ? Receive Date: ? 09/24/2012 ? Provider: HOLLEY JOSEPH MD Copy to: KARI PERAZA MD ? Final Report SPECIMEN ADEQUACY ? Satisfactory for Evaluation - transformation zone component present GENERAL CATEGORIZATION ? Negative for Intraepithelial Lesion or Malignancy INTERPRETATION ? Fungal organisms present morphologically consistent with Annette species. Specimen/Source: ??Pap Test, Cervix/Endocervix, ThinPrep Imaging System with manual evaluation Document reviewed and electronically signed by: ? Nannette Taylor, ARNOL(ASCP) ? Report ??Date: 10/03/2012 11:34 HPV with Pap Test ? Date Ordered: ? 10/03/2012 ? Status: ?? Signed Out ?Date Complete: ? 10/05/2012 ? By: ??System Interface ? Date Reported: ? 10/05/2012 ? Interpretation RESULT: Negative for HPV. No E6 or E7 mRNA is detected from HPV types 16,18,31,33,35, 39,45,51,52,56,58, 59,66, and 68 by sales representative meats mediated amplification. Comments Document reviewed and electronically signed by: ? System Interface ? Report date: 10/05/2012 By the signature above, the attending physician certifies that he/she has personally conducted a gross and/or microscopic examination of the described specimens and rendered or confirmed the above diagnosis. End of Report [facility] 09/20/2012 09/24/2012 us Holley Joseph MD PATHOLOGY ORDERABLES Final Resu lt Performing Organization Address City/State/[facility] Co de Phone Number [facility] [address] [place] [address] documented in this encounter Visit Diagnoses Not on filedocumented in this encounter Care Teams Manager Of Manufacturing Relationship Specialty Start Date End Date Md Lynn MD PCP - General 03/01/10 10/22/14 documented as of this encounter
--- OUTSIDE RECORDS SUMMARY | 2024-03-07 15:11 | XMS_ITS | Encounter Summary ---
Author Organization [facility] Address [facility] [place] [address] Care Team Providers Care Transaction Advisory Services Manager Name Role Phone Miriam Wright MD Primary Care Provider [phone] Reason for Visit * Reason Comments Skin Check Encounter Details Date Type Department Care Team (Late st Contact Info) Description 12/11/2014 10:45 AM EDT Office Visit Dermatology at [address] [place] [address] Renzo Eddy MD [address] [facility] [place] [address] Vitiligo Social History Tobacco Use Types Packs/Day Years Used Date Smoking Tobacco: Never Sex and Gender Information Value Date Recorded Sex Assigned at Not on file Gender Identity Not on file Sexual Orientation Not on file documented as of this encounter Progress Notes * Renzo Eddy MD - 12/11/2014 11:19 AM EDT Problem: Facial dyspigmentation. Sena is a 39-year-old woman who this spring in April 2014 noted the fairly sudden development, she states, of three hypopigmented patches just below the soren border of her lower lip. These developed after she had had four tanning treatment sessions and after she had a significant problem with chapped lips this last winter. She states that she has no other areas of hypopigmentation. She otherwise is healthy, on no medications. 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 Physical examination reveals a pleasant, 39-year-old woman who has three hypopigmented patches, one below the left angle of the mouth and below the soren border, and two more elongated, ovoid, hypopigmented patches present under the more mid soren border. These are all 1 and 2 cm in diameter. The patient has type 4 to 5 Arteaga pigmentation. Examination of the hands and the rest of her face reveals no other areas of hypopigmentation. Assessment and Plan: Vitiligo. a. Discussed diagnosis. b. I recommended that she begin topical therapy with Dovonex cream, applying once a day, and triamcinolone 0.1% cream, applying once a day; 15 grams of each was dispensed with one refill. c. Return to clinic in three months for repeat check. d. Discussed the expected slow improvement. Discussed pigmentation returning not evenly but as freckles of pigmentation, which will then expand and, with luck, fill in the affected areas. e. I reassured her that neither the chapped lips nor the tanning visits are likely triggers for this. I would not recommend phototherapy for this condition. f. Return to clinic in three months for repeat check. Note: I reassured her that it is a positive indicator that this will not extend or spread that for the last seven months it has not moved beyond the original sites of involvement. COPY: Miriam Wright M.D. documented in this encounter Plan of Treatment Not on file documented as of this encounter Visit Diagnoses Diagnosis Vitiligo documented in this encounter Care Teams Transaction Advisory Services Manager Relationship Specialty Start Date End Date Miriam Wright MD [facility] [address] [place] [address] PCP - General 10/06/14 documented as of this encounter
--- OUTSIDE RECORDS SUMMARY | 2024-03-07 15:11 | XMS_ITS | Encounter Summary ---
Author Organization [facility] Address [address] [place] [address] Care Team Providers Care Marketing Recruiter Name Role Phone Miriam Wright MD Primary Care Provider [phone] Encounter Details Date Type Department Care Team (Late st Contact Info) Description 08/06/2019 Lab Requisition [facility] Pathology & Laboratory Medicine - [address] [id number] Outr Resulting Lab, Provider Social History Tobacco [...] Procedure Name Priority Date/Time Associated Diagnosis Comments ZZCOVID-19 TEST [facility] PCR Today 08/06/2019 9:03 EDT COVID-19 TESTING Routine 08/06/2019 9:03 EDT documented in this encounter Results * COVID-19 TEST [facility] PCR (08/06/2019 9:03 EDT) Swab ENTIRE NASOPHARYNX / Unknown 08/06/2019 9:03 EDT 08/06/2019 16:19 EDT us Provider Outr Resulting Lab MICROBIOLOGY - GENER AL ORDERABLES Final Result [facility] [address] [place] [address] * COVID-19 TESTING (08/06/2019 9:03 EDT) COVID-19 rt-PCR Result Negative Negative 08/06/2019 23:47 EDT [facility] Comment: This test has not been FDA cleared or approved. This test has been authorized by FDA under an EUA for use by authorized laboratories. This test has been authorized only for detection of nucleic acid from 2019-nCoV, not for any other viruses or pathogens. This test is only authorized for the duration of the declaration that circumstances exist justifying the authorization of emergency use of in vitro diagnostic tests for detection and/or diagnosis of 2019-nCoV under section 564(b)(1) of Act, 21 U.S.C ?? 360bbb-3(b) (1), unless the authorization is terminated or revoked sooner. Negative results do not preclude 2019-nCoV infection and should not be used as the sole basis for treatment or other patient management decisions. Negative results must be combined with clinical observations, patient history, and epidemiological information. Performed on the NeGoBuY Fusion instrument Performing Lab [place] [facility] Lab 08/06/2019 23:47 EDT [facility] Swab ENTIRE NASOPHARYNX / Unknown 08/06/2019 9:03 EDT 08/06/2019 16:19 EDT us Provider Outr Resulting Lab MICROBIOLOGY - GENER AL ORDERABLES Final Result [facility] [address] [place] [address] documented in this encounter Visit Diagnoses Not on filedocumented in this encounter Care Teams Marketing Recruiter Relationship Specialty Start Date End Date Miriam Wright MD [address] [place] [phone] PCP - General 10/23/14 documented as of this encounter
--- OUTSIDE RECORDS SUMMARY | 2024-03-07 15:11 | XMS_ITS | Clinical Summary ---
Author Organization [facility] Address [facility] [place] [address] Care Team Providers Care Human Resources Hr Generalist Name Role Phone Miriam Wright MD Primary Care Provider [phone] Allergies Active Allergy Reactions Criticality Noted Date Comments Amoxicillin 12/11/2014 Medications Medication Sig Dispensed Refills Start Date End Date Status triamcinolone (KENALOG) 0.1 % Cream Apply twice daily to affected areas to clear erythema and to stop pruritus. Once clear d/c and use CeraVe daily. 80 g 2 01/01/2019 Active Active Problems Problem Noted Date Diagnosed Date Vitiligo 12/11/2014 Social History Tobacco Use Types Packs/Day Years Used Date Smoking Tobacco: Never Smokeless Tobacco: Never Sex and Gender Information Value Date Recorded Sex Assigned at Not on file Gender Identity Not on file Sexual Orientation Not on file Last Filed Vital Signs Vital Sign Reading Time Taken Comments Blood Pressure 101/56 10/19/2014 6:30 PM EDT Pulse 113 10/19/2014 6:30 PM EDT Temperature 38 ??C (100.4 ??F) 10/19/2014 6:00 PM EDT Respiratory Rate 24 10/19/2014 6:30 PM EDT Oxygen Saturation 97% 10/19/2014 6:30 PM EDT Inhaled Oxygen Concentration - - Weight - - Height - - Body Mass Index - - Plan of Treatment Health Maintenance Due Date Last Done Comments CT Colonography 1977 Colonoscopy 1977 Colorectal Cancer Screening 1975 FIT DNA 1975 FIT 1975 Sigmoidoscopy (10 year) with FIT yearly 1975 Sigmoidoscopy 1977 HIV screen 1995 Hepatitis C Screening 1995 Hepatitis B vaccine (0-59 yrs) (1) 01/09/1996 Tetanus/Diphtheria/Pertussis Vaccines (1 - Tdap) 01/08 HPV test 2007 PAP Smear 2007 Breast Cancer Share Decision Needed 2017 Breast Cancer screening 2017 Covid-19 Vaccine (1 - 2023- season) 2023 Influenza (Flu) vaccine (1 o f 1 - Influenza standard series) 10/29/2023 Care Teams Human Resources Hr Generalist Relationship Specialty Start Date End Date Miriam Wright MD [facility] [address] [place], [place] [address] PCP - General 10/06/14
--- OUTSIDE RECORDS SUMMARY | 2024-03-07 15:11 | XMS_ITS | Encounter Summary ---
Author Organization [facility] [facility] [place] [address] Care Team Providers Care Ip/Mosaic Technician Name Role Phone Miriam Wright MD Primary Care Provider Encounter Details Date Type Department Care Team (Late st Contact Info) Description 10/19/2014 4:29 PM EDT Anesthesia [place] [address] Corinne Ward MD [facility] [place] [address] Anesthesia Record Procedure Summary Procedure Name Responsible Anesthesiologist Anesthesia Start Time Anesthesia Stop Time ERCP (WRVU 5.85) (Trunk) Corinne Ward MD 10/19/14 1629 10/19/14 1729 Events Date Time Event Comment 10/19/2014 1629 AN Verify 1629 Start 1629 An Start Data 1635 An Induction 1636 An Intubation 1640 Anesthesia Ready 1718 Extubation/LMA Out To Delete (skip) the Extubation event, click the X below. 1720 an stop data 1729 Stop 1730 Meds Name Total Midazolam 2 mg IV Lidocaine 60 mg Propofol 150 mg PHENYLephrine 80 mcg Succinylcholine 120 mg * Agents Name O2 Air Sevoflurane (et) * Blood No blood administrations on file. Lines, Drains, and Airways Type Details Placement Removal (RETIRED) Peripheral IV Line - Single Lumen 10/19/14; 1629; median vein left (underside of arm); 20 gauge; 06/12/17 (Auto removal via utility); 0921 (Auto removal via utility) 10/19/14 1629 by Sandoval Lofton DO 06/12/17 0921 by Breathometer, User ETT Mask Ventilation: No t Attempted (0); ETT Type: Cuffed, Oral; Mac Blade: 4; Notes: Asleep, Pre-O2, RSI, Stylette; Attempts: 1; Laryngoscopy Grade: 1; ETT Placement Verified By: Auscultation, Capnometry, Visual; Inserted by: roxy; Removal Date: 10/19/14; Removal Time: 171710/19/14 163 by Sandoval Lofton DO 10/19/14 1718 by Sandoval Lofton DO documented in this encounter Social History Tobacco Use Types Packs/Day Years Used Date Smoking Tobacco: Never Assessed Sex and Gender Information Value Date Recorded Sex Assigned at Not on file Gender Identity Not on file Sexual Orientation Not on file documented as of this encounter OR Notes * Anesthesia Postprocedure Evaluation - Sandoval Lofton DO - 10/19/2014 5:55 PM EDT Patient: Sena Soriano Procedure(s) Performed: Procedure(s): ERCP Actual Anesthetic: No value filed. Patient location: PACU Post-op pain: Adequate analgesia Post-op nausea: no nausea or vomiting Last Vitals: Filed Vitals: 10/19/14 1745 BP: 92/57 Pulse: 127 Temp: Resp: 17 Post-op cardiovascular and respiratory status: is stable Level of consciousness: awake, alert and oriented Complications: no apparent complications and tolerated the procedure well Fluid Status: normal * Anesthesia Preprocedure Evaluation - Reji Monge - 10/19/2014 5:30 PM EDT Pre-Anesthesia Evaluation for: Sena Soriano a 39 y.o. female. Procedure(s): ERCP There are no active problems to display for this patient. No past medical history on file. No past surgical history on file. History Substance Use Topics ??? Smoking status: Not on file ??? Smokeless tobacco: Not on file ??? Alcohol Use: Not on file History Drug Use Not on file No Known Allergies Medications: MAR and/or home medications have been reviewed. Physical Exam: There were no vitals filed for this visit. There is no height or weight on file to calculate BMI. Airway Assessment: Mallampati: I TM distance: >3 FB Neck ROM: full Cardiovascular Assessment: PE comment: Tachycardic, regular Pulmonary Assessment: breath sounds clear to auscultation Dental Assessment: Misc Assessment: Patient is wearing No contact(s). IV access: Peripheral line Other exam findings: Scleral icterus Anesthesia Plan: ASA 1 emergent general, with a(n) intravenous induction Sena Soriano is a 39 y.o. female with dilated CBD, [facility]. [facility] is otherwise healthy. Has had nausea but no vomiting. Appropriately NPO. Anesthetic history: spinal for c/s, no personal hx GA. Denies family hx complications. Plan [facility] Region - Other Informed Consent: Anesthetic plan and risks discussed with patient. Use of blood products discussed with patient whom. Plan discussed with attending. Misc. Assessment: documented in this encounter Plan of Treatment Not on file documented as of this encounter Visit Diagnoses Not on filedocumented in this encounter Administered Medications Inactive Administered Medications - up to 3 most recent administrations Medication Order MAR Action Action Date Dose Rate Site lidocaine (PF) (XYLOCAINE) 100 mg/5 mL (2 %) injection PRN, Starting on 10/19/14 at 1635, Until 10/19/14 at 1729, Anesthesia Intra-op, Routine Given 10/19/2014 4:35 PM EDT 60 mg midazolam (PF) (VERSED) 1 mg/mL multi-dose injection PRN, Starting on 10/19/14 at 1629, Until 10/19/14 at 1729, Sleep, Anesthesia Intra-op, Routine Given 10/19/2014 4:29 PM EDT 2 mg PHENYLephrine HCl in NS (PF) (JASON-SYNEPHRINE) 0.8 mg/10 mL (80 mcg/mL) multi-dose injection Syrg PRN, Starting on 10/19/14 at 1651, Until 10/19/14 at 1729, Anesthesia Intra-op, Routine Given 10/19/2014 5:00 PM EDT 40 mcg Given 10/19/2014 4:51 PM EDT 40 mcg propofol (DIPRIVAN) 10 mg/mL bolus injection (Anesthesia) PRN, Starting on 10/19/14 at 1635, Until 10/19/14 at 1729, Anesthesia Intra-op Given 10/19/2014 4:35 PM EDT 150 mg succinylcholine (ANECTINE) injection PRN, Starting on Mon10/19/14 at 1636, Until [place] 10/19/14 at 1729, Anesthesia Intra-op, Routine Given 10/19/2014 4:36 PM EDT 120 mg documented in this encounter Care Teams Ip/Mosaic Technician Relationship Specialty Start Date End Date Miriam Wright MD [facility] [address] [facility] [address] [place] [address] PCP - General 10/06/14 documented as of this encounter
--- OUTSIDE RECORDS SUMMARY | 2024-03-07 15:11 | XMS_ITS | Encounter Summary ---
Author Organization [facility] Address [address] [place] [address] Care Team Providers Care Pump Rebuilder Name Role Phone Md GUI Lynn Primary Care Provider Unavaila ble Encounter Details Date Type Department Care Team (Late st Contact Info) Description 10/21/2014 Results Only [facility] [phone] Tyra Parmar MD [facility] [place] [address] Social History Tobacco Use Types Packs/Day Years [...] Procedure Name Priority Date/Time Associated Diagnosis Comments SURGICAL PATHOLOGY Routine 10/21/2014 20 :48 EDT documented in this encounter Results * SURGICAL PATHOLOGY (10/21/2014 20:48 EDT) Pathology Report: SURGICAL PATHOLOGY REPORT Reports generated via electronic interface contain original data; however they are lacking the format of the original report. Caution should be taken when reading/interpret ing unformatted reports. Name: ? EDY MARIE ? Accession #: ? [id number] ? : ? 1975 (Age: 39) ??F ? Collect Date: ? 10/21/2014 ? Location: ? [facility] ? Receive Date: ? 10/21/2014 ? Provider: TYRA PARMAR MD Copy to: KARI PERAZA MD ? Final Pathologic Diagnosis: GALLBLADDER, CHOLECYSTECTOMY: - ??Acute on chronic cholecystitis. - ??Adenomyosis. Document reviewed and electronically signed by: MYRANDA ACOSTA MD Report ??Date: 10/24/2014 11:38 By the signature above, the attending physician certifies that he/she has personally conducted a gross and/or microscopic examination of the described specimens and rendered or confirmed the above diagnosis. Specimen(s) Received: Gallbladder Clinical History: Cholangitis, chronic cholecystitis/acu te Gross Description: ? Received in formalin labelled with proper patient identification (initials P, R) and gallbladder is an intact gallbladder (9.5 cm in length x 2.8 cm in diameter) with a segment of cystic duct (2.0 cm in length x 0.9 cm in diameter). ? The serosa is dull, generally smooth, stauffer-white and focally hyperemic. The mucosa is mccallum and focally light brown and diffusely studded with raised yellow flecks in a reticular pattern and the wall is up to 0.3 cm in thickness. There is subserosal adipose tissue (up to 0.7 cm in thickness) The cystic duct lumen is patent (the cystic duct wall measures 0.2 cm in thickness). The cystic duct margin is inked blue. No choleliths are present. ? Two financial services sales representative sections and the inked en face cystic duct margin are submitted in 1. Jairo Blanchard 10/22/2014 11:14 AM End of Report [facility] 10/21/2014 20:4 8 EDT 10/21/2014 20:48 EDT us Tyra Parmar MD PATHOLOGY ORDERABLES Shon al Result [facility] [address] [place] [address] documented in this encounter Visit Diagnoses Not on filedocumented in this encounter Care Teams Pump Rebuilder Relationship Specialty Start Date End Date Md Lynn MD PCP - General 03/01/10 10/22/14 documented as of this encounter
--- OUTSIDE RECORDS SUMMARY | 2024-03-07 15:11 | XMS_ITS | Encounter Summary ---
[place] [address] Care Team Providers Care Toxicology Teacher Name Role Phone Miriam Wright MD Primary Care Provider [phone] Encounter Details Date Type Department Care Team (Late st Contact Info) Description 01/01/2019 Refill Dermatology at [address] [place] [address] Jaqui Penaloza, LOSS CLAIM CLERK Social History Tobacco Use Types Packs/Day Years [...] on filedocumented in this encounter Care Teams Toxicology Teacher Relationship Specialty Start Date End Date Miriam Wright MD [facility] [address] [place] [address] PCP - General 10/06/14 documented as of this encounter
--- OUTSIDE RECORDS SUMMARY | 2024-03-07 15:11 | XMS_ITS | Encounter Summary ---
Author Organization [facility] Address [facility] [place] [address] Care Team Providers Care Nurses Aide Name Role Phone Miriam Wright MD Primary Care Provider [phone] Reason for Visit * Reason Comments Skin Check Encounter Details Date Type Department Care Team (Late st Contact Info) Description 01/01/2019 8:15 AM EST Office Visit Dermatology at [address] [place] [address] Renzo Eddy MD [address] [facility] [place] [address] Vitiligo; Dermatitis Social History Tobacco Use Types Packs/Day Years Used Date Smoking Tobacco: Never Smokeless Tobacco: Never Sex and Gender Information Value Date Recorded Sex Assigned at Not on file Gender Identity Not on file Sexual Orientation Not on file documented as of this encounter Progress Notes * Renzo Eddy MD - 01/01/2019 8:15 AM EST Problem: 1. New rash 2. History of vitiligo Sena follows up after last being seen in February 2015 for vitiligo under the left angle of the mouth and under the central vermilion border. That is stable and has not progressed. However since spring she had an itchy rash on her legs. For times she is also in her arms. She notices little uniform bumps coming up and is seemingly perifollicular distribution on the lateral calves bilaterally. She had a very little bit of the Dovonex and triamcinolone cream left over from her vitiligo treatment and to use that 2 or 3 times on the leg rash with some success. She uses a Palacios body wash witha pair fragments in the shower, Lubriderm emollient lotion, fragrance free. She uses a loofah sponge in the shower. She uses Tide HE and does use fabric softener which is fragranced. Physical examination reveals a pleasant 43-year-old [place] woman who has a lichenoid flesh toned slightly erythematous uniform papules on the lower lateral ankles bilaterally. There is some slight hyperpigmentation present from postinflammatory due to postinflammatory hyperpigmentation. The vitiligo remains stable on the below the left angle of mouth and on her central lip below the jaskaran milion border. She states that for a time she also had this on the lateral forearms but this is healed and resolved. The patient has type IV-5 Arteaga pigmentation. 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 Recommend that we begin triamcinolone 0.1% cream on a twice daily basis to affected areas to clear erythema and to stop pruritus. Will dispense 80 g tube with 2 refills 2. At that point, discontinue triamcinolone and simply use CeraVe cream on a regular daily basis tokeep legs in mild deviated. 3. Discontinue use of current fragrance products and use fragrance free detergent fragrance free soap balance free fabric softeners. Discontinue use of loofah sponge. 4. Once dermatitis and itching have resolved may add back one at a time for prior skin care products 1 week tubes and observe for recurrence of her symptoms. Vitiligo 1. Fortunately stable 2. Fortunately minimally apparent 3. Continue to observe CC: Miriam Wright MD documented in this encounter Plan of Treatment Not on file documented as of this encounter Visit Diagnoses Diagnosis Vitiligo Dermatitis Contact dermatitis and other eczema, due to unspecified cause documented in this encounter Care Teams Nurses Aide Relationship Specialty Start Date End Date Miriam Wright MD [facility] [address] [place] [id number] PCP - General 10/06/14 documented as of this encounter
--- OUTSIDE RECORDS SUMMARY | 2024-03-07 15:11 | XMS_ITS | Encounter Summary ---
Author Organization [facility] [place] [address] Care Team Providers Care Blanket Cutter Hand Name Role Phone Miriam Wright MD Primary Care Provider [phone] Encounter Details Date Type Department Care Team (Late st Contact Info) Description 10/19/2014 4:00 PM EDT - 10/19/2014 5:00 PM EDT [place] [address] Alexia Gupta MD [facility] [place] [address] ERCP (WRVU 5.85) Social History Tobacco Use Types Packs/Day Years Used Date Smoking Tobacco: Never Smokeless Tobacco: Never Sex and Gender Information Value Date Recorded Sex Assigned at Not on file Gender Identity Not on file Sexual Orientation Not on file documented as of this encounter Progress Notes * Renae Ross RN - 10/19/2014 6:01 PM EDT 1724 Patient Received from endoscopy after having a ERCP. Patient placed on monitors and alarms set. A second IV has been placed by to give an additional liter of IVF. LR infusing. 1800 1500cc of addition IV fluid infused. Dr. Gupta in to see patient. [facility]. Monge made aware of patient's VS and has oked patient to go by ambulance.1832 Patient meets discharge criteria. Report given to [facility] RN about endo by broadband installer. Report given to [place] EMT and patient moved onto ambulance stretcher and discharged from PACU. documented in this encounter H&P Notes * Alexia Gupta MD - 10/19/2014 4:00 PM EDT Gastroenterology and Hepatology Pre-Procedure History and Physical Exam Procedure: ERCP: Indication: bile duct stone Patient admitted to [facility] yesterday for abdominal pain, elevated LFT's, jaundice. [...] on filedocumented in this encounter Care Teams Blanket Cutter Hand Relationship Specialty Start Date End Date Miriam Wright MD [address] [place] [address] PCP - General 10/06/14 documented as of this encounter
--- OUTSIDE RECORDS SUMMARY | 2024-03-07 15:11 | XMS_ITS | Encounter Summary ---
Author Organization [facility] [place] [address] Care Team Providers Care Cash Applications Representative Name Role Phone Miriam Wright MD Primary Care Provider [phone] Reason for Visit * Reason Comments Follow-up Encounter Details Date Type Department Care Team (Late st Contact Info) Description 03/24/2015 4:30 PM EST Office Visit Dermatology at [address] [place] [id number] Renzo Eddy MD [address], JORDAN A DERMATOLOGY [place], [place] [id number] Vitiligo Social History Tobacco Use Types Packs/Day Years Used Date Smoking Tobacco: Never Sex and Gender Information Value Date Recorded Sex Assigned at Not on file Gender Identity Not on file Sexual Orientation Not on file documented as of this encounter Patient Instructions * Patient Instructions* Deanna Gan LPN - 03/24/2015 4:45 PM EST Images from the original note were not included. [facility] Vitiligo: After Your Visit Your Care Instructions Vitiligo (say ab-oiq-ED-go) is a skin problem that happens when cells that make pigment are destroyed. Pigment gives skin its color. You may have white patches on areas of your body. The hair in these places may turn white. Sometimes, the white patches spread. Doctors don't know what causes this problem. It may run in families. This means that a child may bemore likely to get it if a parent has it. If you decide to treat this problem, treatment can take a long time to work. So it's important to be patient and to follow your doctor's instructions. Follow-up care is a levy part of your treatment and safety. Be sure to make and go to all appointments, and call your doctor if you are having problems. It's also a good idea to know your test resultsand keep a list of the medicines you take. How can you care for yourself at home? ?? Put creams or ointments on your skin as directed by your doctor. Be careful if you put them around your eyes, nose, or mouth. ?? Take your medicines exactly as prescribed. Call your doctor if you have any problems with your medicine. ?? If you have PUVA treatment, you will take medicine by mouth. You will also spend time in a boothwith special lights. Follow your doctor's directions. ?? Protect your skin from the sun. It is most important to protect the white patches. Use sunscreen, hats with wide brims, sunglasses, and clothing that covers your arms and legs. ?? Talk to your doctor about sunless tanning products. You can buy these without a prescription. When should you call for help? Watch closely for changes in your health, and be sure to contact your doctor if: ?? White patches on your skin spread faster than usual. ?? You do not get better as expected. Where can you learn more? Visit our health information library at [email or web address] You can also view health information on [employer]ing[employer], your personal patient account. Log in or sign up today. Enter B241 in the search box to learn more about Vitiligo: After Your Visit. ?? [id number] [employer]. Care instructions adapted under license by [facility]. This care instruction is for use with your licensed healthcare professional. If you have questions about a medical condition or this instruction, always ask your healthcare professional. [employer] disclaims any warranty or liability for your use of this information. Content Version: 10.4.430469; Current as of: May 08, 2013 documented in this encounter Progress Notes * Renzo Eddy MD - 03/24/2015 5:13 PM EST Problem: Followup vitiligo. Sena follows up and is much better. It has been three months since I saw her last, and she has been using the triamcinolone 0.1% cream once a day and using Dovonex cream, applying this once a day, one at the beginning and one at the end of the day. She has noted that of the three spots the one to the far right has totally repigmented, the one in the middle has partially repigmented, but the one under the left angle of the mouth has not yet changed too much. The patient is here today with her son, Stanley. Physical examination confirms, indeed, good repigmentation of the site on the far right, partial, perhaps 50% plus, repigmentation on the central site, but still a roughly 1-cm area of hypopigmentation under the left angle of the mouth. Assessment and Plan: Vitiligo. a. Discussed patience. We are seeing good improvement. b. Continue current therapies, Dovonex at one end of the day, triamcinolone 0.1% cream at the other end of the day. We will call to be sure that she has refills of both. c. Sena will be heading out for vacation to the [facility] in a month or two, and we discussed the importance of using sunscreen to protect the vitiliginous areas when she is in the sun there. Discussed, however, that phototherapy is helpful for this, but she needs to be careful that she does not burn. I am quite happy for her to see this good response, because frankly in a perioral distribution often vitiligo is very recalcitrant to therapy. Continue current therapies. Return to clinic if she is not seeing further improvement. COPY: Miriam Wright M.D. documented in this encounter Plan of Treatment Not on file documented as of this encounter Visit Diagnoses Diagnosis Vitiligo documented in this encounter Care Teams Cash Applications Representative Relationship Specialty Start Date End Date Miriam Wright MD [address] [place] [address] [address] PCP - General 10/06/14 documented as of this encounter
--- OUTSIDE RECORDS SUMMARY | 2024-03-07 15:11 | XMS_ITS | Clinical Summary ---
Author Organization [facility] Address [address] [place] [address] Care Team Providers Care Primary Health Organisation Manager Name Role Phone Miriam Wright MD Primary Care Provider [phone] Social History Tobacco Use Types Packs/Day Years Used Date Smoking Tobacco: Never Assessed Comments Unknown Sex and Gender Information Value Date Recorded Sex Assigned at Not on file Legal Sex Female 18:51 EST Gender Identity Not on file Sexual Orientation Not on file Plan of Treatment Health Maintenance Due Date Last Done Comments Hepatitis C Screen 1975 Hepatitis B Vaccine (1 of 3 - 19+ 3-dose series) 01/08 COVID-19 Vaccine ( season) 2023 Care Teams Primary Health Organisation Manager Relationship Specialty Start Date End Date Miriam Wright MD [address] [place] [address] [address] [place] [phone] PCP - General 10/23/14
--- OUTSIDE RECORDS SUMMARY | 2024-03-07 15:11 | XMS_ITS | Encounter Summary ---
Author Organization [facility] [place] [address] Care Team Providers Care Railroad Surveyor Name Role Phone Miriam Wright MD Primary Care Provider [phone] Encounter Details Date Type Department Care Team (Late st Contact Info) Description 10/19/2014 [place] [phone] Julio Jay MD [facility] [place] [address] Social History Tobacco Use Types Packs/Day Years Used Date Smoking Tobacco: Never Assessed Sex and Gender Information Value Date Recorded Sex Assigned at Not on file Gender Identity Not on file Sexual Orientation Not on file documented as of this encounter Plan of Treatment Not on file documented as of this encounter Procedures Procedure Name Priority Date/Time Associated Diagnosis Comments ERCP Routine 10/19/2014 2:07 PM EDT FILM LIBRARY STORAGE ONLY CT ABDOMEN AND PELVIS Routine 10/19/2014 10:40 AM EDT documented in this encounter Results * ERCP (10/19/2014 2:07 PM EDT) ERCP [facility] Endoscopy Patient Name: Sena Soriano ? Procedure Date: 10/19/2014 2:07 PM ? Date of : 1975 ? Age: 39 ? Order #: [id number] ? Procedure: ? ERCP Indications: ? Suspected bile duct stone(s), ? Suspected ascending cholangitis Providers: ? Alexia Gupta MD, Larissa Reddy MD, ? Shy Parr, BRENNEN, Delfina Linder Referring : ? Medicines: ? Monitored Anesthesia Care, ? Indomethacin 100mg NC, patient ? received cipro 400mg IV at 8am Complications: ? No immediate complications. Procedure: ? Pre-Anesthesia Assessment: ? - Prior to the procedure, a History ? and Physical was performed, and ? patient medications, allergies and ? sensitivities were reviewed. The ? patient's tolerance of previous ? anesthesia was reviewed. ? - The risks and benefits of the ? procedure and the sedation options ? and risks were discussed with the ? patient. All questions were answered ? and informed consent was obtained. ? The procedure, indications, benefits, ? risks and alternatives were explained ? to the patient. Specifically ? discussed were potential ? complications including, but not ? limited to, bleeding, perforation, ? infection, pancreatitis, missing a ? cancer, and adverse medication ? reactions. The Duodenoscope was ? introduced through the mouth, and ? advanced to the duodenum where it was ? used to inject contrast into and used ? to inject contrast into the bile ? duct. The ERCP was accomplished ? without difficulty. The patient ? tolerated the procedure well. ? Findings: ? The major papilla was bulging with pus and mucous ? exuding. The bile duct was deeply cannulated with the ? short-nosed traction sphincterotome. Contrast was ? injected. I personally interpreted the bile duct ? images. There was brisk flow of contrast through the ? ducts. Image quality was excellent. Contrast extended ? to the main bile duct. Contrast extended to the ? hepatic ducts. The lower third of the main bile duct ? contained one stone, which was 5 mm in diameter. A 12 ? mm biliary sphincterotomy was made with a ? monofilament traction (standard) sphincterotome using ? ERBE electrocautery. There was no post-sphincterotomy ? bleeding. The biliary tree was swept with an 11.5 mm ? balloon starting at the bifurcation. One stone was ? removed along with pus and sludge. No stones ? remained. The cystic duct never opacified. The bile ? duct was 8mm in diameter, intrahepatic ducts were ? normal. ? There was a small duodenal diverticulum near the ? ampulla. ? Impression: ?- The major papilla appeared to be ? bulging with pus exuding. ? - A sphincterotomy was performed. ? - The biliary tree was swept. ? - Choledocholithiasis was found. ? Complete removal was accomplished by ? biliary sphincterotomy and balloon ? extraction. Recommendation: ?Continue antibiotics for 5 days. ? Cholecystectomy this hospitalization. ? Patient to go back to [facility] after PACU. ? Alexia Gupta MD 10/19/2014 5:32 PM This report has been signed electronically. Number of Addenda: 0 Note Initiated On: 10/19/2014 2:07 PM PROVATION 10/19/2014 2:07 PM EDT Unknown GENERAL SURGICAL ORD ERABLES PROVATION * Film Library- Storage only CT abdomen & pelvis (10/19/2014 10:40 AM EDT) Anatomical Region Laterality Modality Abdomen, Pelvis Other 10/19/2014 10:4 0 AM EDT Narrative 10/19/2014 10:49 AM EDT This is a Non-reportable exam Procedure Note CEE, UNSIGNED REPORT - 10/19/2014 This is a Non-reportable exam Julio Jay MD IMG FILM LIBRARY ORDERABLES documented in this encounter Visit Diagnoses Not on filedocumented in this encounter Care Teams Railroad Surveyor Relationship Specialty Start Date End Date Miriam Wright MD [address] [place] [address] PCP - General 10/06/14 documented as of this encounter
--- OUTSIDE RECORDS SUMMARY | 2024-03-07 15:11 | XMS_ITS | Encounter Summary ---
Author Organization [facility] Address [address] [place] [address] Care Team Providers Care Chief Commercial Officer Name Role Phone Md GUI Lynn Primary Care Provider Unavaila ble Encounter Details Date Type Department Care Team (Late st Contact Info) Description 02/25/2010 Results Only [facility] Laboratory Services - [facility] [place] [address] [place], [place] [id number] Khoa Dyer CNM [address] [phone] Social History Tobacco Use Types Packs/Day Years [...] Procedure Name Priority Date/Time Associated Diagnosis Comments CYTOPATHOLOGY Routine 02/25/2010 0:00 EST documented in this encounter Results * CYTOPATHOLOGY (02/25/2010 0:00 EST) Pathology Report: CYTOPATHOLOGY REPORT ? Reports generated via electronic interface contain original data; ? however they are lacking the format of the original report. ? Caution should be taken when reading/interpreti ng unformatted reports. ? Name: ? EDY MARIE ? Accession #: ? [id number] ? : ? 1975 (Age: 35) ??F ?Collect Date: ? 02/25/2010 ? Location: ? [facility] ? Receive Date: ? 03/01/2010 ? Provider: ?ANEA LELONG CNM ? Copy to: ? Specimen/Source: ?Pap Test, Cervix/Endocervix, ThinPrep Imaging System ? with manual evaluation ? Last Menstrual Period: ? 10/21/10 ? Menstrual/Pregnanc y Status: ? SPECIMEN ADEQUACY ? Satisfactory for Evaluation ? - transformation zone component present ? GENERAL CATEGORIZATION ? Negative for Intraepithelial Lesion or Malignancy ? Document reviewed and electronically signed by: ? Leonora Chaseley, CT(ASCP) ? Report Date: ??03/04/2010 08:57 ? End of Report ? BLAIR LOZA 02/25/2010 03/01/2010 us Khoa Dyer CNM PATHOLOGY ORDERABLES Final Resul t BLAIR LOZA [address] [place] [address] documented in this encounter Visit Diagnoses Not on filedocumented in this encounter Care Teams Chief Commercial Officer Relationship Specialty Start Date End Date Md Lynn MD PCP - General 03/01/10 10/22/14 documented as of this encounter
--- OUTSIDE RECORDS SUMMARY | 2024-03-07 15:11 | XMS_ITS | Encounter Summary ---
[facility] [place] [address] Care Team Providers Care Material Stress Tester Name Role Phone Miriam Wright MD Primary Care Provider [phone] Encounter Details Date Type Department Care Team (Late st Contact Info) Description 10/19/2014 Telephone [place] [address] Larissa Reddy MD Social History Tobacco Use Types Packs/Day Years Used Date Smoking Tobacco: Never Assessed Sex and Gender Information Value Date Recorded Sex Assigned at Not on file Gender Identity Not on file Sexual Orientation Not on file documented as of this encounter Miscellaneous Notes * Telephone Encounter - Larissa Reddy MD - 10/19/2014 3:35 PM EDT Received call from [facility] regarding Ms. Soriano 39 yo F recent H.ylori s/p treatment present with recurrent epigastric/RUQ pain. Febrile 38.3 HR: 110 BP: stable. LFT's with T.bili: 7-->5 AST/ALT: 700's-->200's Alk phos: 250. US 2 days ago with CBD: 5 with gallstones but no intra/extrahepatic dilation. Today wbc: 13K, normal lipase and worsening abdominal pain as well as new fevers. CT scan perreport w/ dilation of CBD with intra bilary dilatation with possible stone in CBD. Plan - tranfer to endo for ERCP w/ anesthesia - transfer back to [facility] after procedure. - Spoke to Dr. Kaiser: plan for [facility]Y after ERCP on Monday/monday documented in this encounter Plan of Treatment Not on file documented as of this encounter Visit Diagnoses Not on filedocumented in this encounter Care Teams Material Stress Tester Relationship Specialty Start Date End Date Miriam Wright MD [facility] [address] [place] [address] PCP - General 10/06/14 documented as of this encounter
[2024-03-07 15:41] LABS: Abs Immature Grans 0.02 10^3/uL (0.0-0.06); Absolute Basophil Count 0.05 10^3/uL (0.0-0.2); Absolute Eosinophil Count 0.45 10^3/uL (0.0-0.7); Absolute Lymphocyte Count 2.75 10^3/uL (1.2-3.4); Absolute Monocyte Count 0.36 10^3/uL (0.1-0.8); Basophils % 0.8 %; Eosinophils % 6.8 %; HGB 15.4 g/dL (11.2-15.7); Immature Grans % 0.3 %; Lymphocytes % 41.5 %; MCH 30.3 pg (27.0-33.0); MCV 87 fL (80-95); MPV 9.3 fL (8.0-11.0); Monocytes % 5.4 %; Neutrophils % 45.2 %; Platelet Count 381 10^3/uL (130-400); RBC 5.08 10^6/uL (3.93-5.22); RDW 12.1 % (11.7-14.6); RDW-SD 38.5 fL; WBC 6.63 10^3/uL (4.4-10.8)
[2024-03-07 16:07] LABS: ALT 34 U/L (14-59); AST 28 U/L (15-37); Albumin 4.1 g/dL (3.4-5.0); Alkaline Phosphatase 84 U/L (46-116); Anion Gap 6.7 mmol/L (3-11); BUN 9 mg/dL (7-18); Bilirubin, Total 0.74 mg/dL (0.2-1.0); CO2 29.3 mmol/L (21.0-32.0); CREATININE 0.9 mg/dL (0.55-1.02); Calcium 9.5 mg/dL (8.5-10.1); Calculated LDL 144 mg/dL (<100); Chloride 105 mmol/L (98-107); Cholesterol 217 mg/dL (<200); Estimated GFR 79.35 (mL/min/1.73m2); Glucose 92 mg/dL (74-106); HDL Cholesterol 45 mg/dL (40-60); Potassium 4.1 mmol/L (3.5-5.1); Sodium 141 mmol/L (136-145); TSH (W/Ref FT4) 1.43 uIU/mL (0.36-3.74); Total Protein 8.5 g/dL (6.4-8.2); Triglyceride 142 mg/dL (<150)
[2024-03-07 16:14] LABS: Hemoglobin A1C 5.3 % (<5.7)
== END 2024-03-07 15:05 | disposition home or self-care (01) ==
LOC: NCHCN 15:04
PROVIDERS: PCP Family Medicine; Visit Provider Nurse Practitioner Family
DX: Z00.00 Encounter for general adult medical examination without abnormal findings (principal); Z12.4 Encounter for screening for malignant neoplasm of cervix; Z11.51 Encounter for screening for human papillomavirus (HPV); E66.9 Obesity, unspecified; E78.5 Hyperlipidemia, unspecified; Z68.30 Body mass index [BMI] 30.0-30.9, adult; R14.0 Abdominal distension (gaseous)
CPT/HCPCS: 80053; 80061; 88142; 83036; 84443; 85025; 87624

== ENCOUNTER 2024-03-27 03:38 | Outpatient (CLI) | payer BC, SELFPAY ==
--- NOTE | 2024-03-27 | DI.MAMMO_ITS ---
Exam(s) MAMMO SCREENING EXAM: MAMMO SCREENING CLINICAL HISTORY: Screening, Z12.31 TECHNIQUE: Bilateral full field digital CC and MLO mammographic images were obtained with 3D tomosyn thesis and utilizing computer aided detection (CAD). COMPARISON: Available for comparison. FINDINGS: Masses/Architectural Distortion: There are stable well-circumscribed nodules in both breasts. No new nodules are seen. No areas of architectural distortion are present. Microcalcifications: No suspicious pleomorphic-type are seen. Skin Thickening/Nipple Retraction: None. IMPRESSION: 1. No significant interval change with no specific features of malignancy noted. 2. Unless there is more urgent need, screening mammography is recommended, as per [employer] [place] [employer] guidelines. BI-RADS Category 2 - Benign Findings Breast Density - Category C - Heterogeneously dense Breast density category C or D implies that the patient has dense breast tissue. Dense breast tissue is very common and is not abnormal but dense breast tissue can make it harder to find cancer on a ma mmogram. Also, dense breast tissue may increase their breast cancer risk. This information about the result of the mammogram report was provided to the patient to raise their awareness. Use this report when you speak with the patient about their risks for breast cancer, which includes their family hist ory. At that time, you may recommend for more screening tests (Ultrasound or MRI) as they might be us eful based on their risk. A negative radiographic report should not delay biopsy if a dominant or clinically suspicious mass is present. Up to ten percent of cancers are not identified on mammography. A negative report may reinforce clinical impression. Adenosis and dense breasts may obscure an underlying neoplasm. False positive reports average 6 to 10%. Patient will receive a letter notifying them of these results.
== END 2024-03-27 03:39 | disposition home or self-care (01) ==
LOC: LBO 03:38
PROVIDERS: PCP Family Medicine; Visit Provider Nurse Practitioner Family
DX: Z12.31 Encounter for screening mammogram for malignant neoplasm of breast (principal); R92.333 Mammographic heterogeneous density, bilateral breasts; D24.1 Benign neoplasm of right breast; D24.2 Benign neoplasm of left breast
CPT/HCPCS: 77063; 77067

== ENCOUNTER 2024-05-03 09:17 | Outpatient (REF) | payer BC, SELFPAY ==
--- NOTE | 2024-05-03 08:00 | ENDO_PTH ---
PATIENT: Sena Child LOC: [facility] U#:[id number] AGE/SX: 49/F ROOM: RE05/03/[address]: Alicia Obrien DO : 1975 BED: DIS: 05/03/2024 SPEC #: [id number] RECD: 05/03/24 12:17 STATUS: SOUAndrew REQ #: [id number] ZAK: 05/03/24 08:[address]: Alicia Obrien DEPT: Surgical Specimen RECD BY: Yohana Granado ENTERED: 05/03/24 12:18 SP TYPE: Endo OTHR DR: Miriam Wright Tissues: 1 - ENDOCERVICAL BX/CURRETTE 2 - ENDOMETRIUM BX/CURRETTE Procedures: GROSS AND MICRO LEVEL 4 Comments: [id number]
== END 2024-05-03 09:18 | disposition home or self-care (01) ==
LOC: LBN 09:17
PROVIDERS: PCP Family Medicine; Visit Provider Obstetrics & Gynecology
DX: D26.0 Other benign neoplasm of cervix uteri (principal); R87.619 Unspecified abnormal cytological findings in specimens from cervix uteri; R87.89 Other abnormal findings in specimens from female genital organs
CPT/HCPCS: 88305

== ENCOUNTER 2024-05-27 01:55 | Outpatient (CLI) | payer BC, SELFPAY ==
[2024-05-27 16:24] LABS: Abs Immature Grans 0.03 10^3/uL (0.0-0.06); Absolute Basophil Count 0.06 10^3/uL (0.0-0.2); Absolute Eosinophil Count 0.43 10^3/uL (0.0-0.7); Absolute Monocyte Count 0.46 10^3/uL (0.1-0.8); Absolute Neutrophil Count 3.75 10^3/uL (1.2-6.7); Basophils % 0.8 %; Eosinophils % 5.5 %; HCT 44.1 % (36.0-46.0); HGB 15.2 g/dL (11.2-15.7); Immature Grans % 0.4 %; Lymphocytes % 39.6 %; MCH 30.1 pg (27.0-33.0); MCHC 34.5 % (32.0-36.0); MCV 87 fL (80-95); MPV 8.9 fL (8.0-11.0); Monocytes % 5.9 %; Neutrophils % 47.8 %; Platelet Count 387 10^3/uL (130-400); RBC 5.05 10^6/uL (3.93-5.22); RDW 12.3 % (11.7-14.6); RDW-SD 39.2 fL; WBC 7.83 10^3/uL (4.4-10.8)
== END 2024-05-27 01:56 | disposition home or self-care (01) ==
LOC: LBO 01:55
PROVIDERS: PCP Family Medicine; Visit Provider Obstetrics & Gynecology
DX: Z01.818 Encounter for other preprocedural examination (principal)
CPT/HCPCS: 36415; 86850; 86900; 86901; 85025

== ENCOUNTER 2024-05-29 06:23 | Day surgery (SDC) | payer BC, SELFPAY ==
[2024-05-29] VITALS (18 sets, daily range): BP systolic 101–124; BP diastolic 67–82; PULSE 75–102; RESP 14–27; TEMP 36.1–36.6; O2SAT 94–99; BMI 29.8
--- NOTE | 2024-05-29 07:14 | ANES.PREOP_ITS ---
General Info Date of Service Date Performed: 05/29/24 Height: 5 ft 2 in Weight: 74.1 kg Body Mass Index (BMI): 29.8 Surgical Procedure: Operation Date: 05/29/24 07:40 Proposed Procedure Side Surgeon p Dilation & Curettage with Hysteroscopy, Jl Obrien DO Actual Procedure Side Surgeon p Dilation & Curettage with Hysteroscopy, Jl Obrien, Pre-Op Diagnosis Post-Op Diagnosis Abnormal Pap smear of cervix Meds Allergies and Home Medications Allergies Allergy/AdvReac Type Severity Reaction Status Date / Time amoxicillin Allergy Severe hives Verified 05/29/24 06:37 Home Medication ?Medication ?Instructions ?Recorded acetaminophen 325 mg tablet 650 mg PO PRN 03/28/16 (Tylenol) multivitamin 1 tab PO DAILY 09/16/22 loratadine 10 mg tablet (Allergy 10 mg PO DAILY PRN 05/28/24 Relief (loratadine)) Current Visit Medications: Current Medications Generic Name Dose Route Start Last Admin Trade Name Freq PRN Reason Stop Dose Admin Ringer's Solution 1,000 mls @ 125 mls/hr 05/29/24 06:00 IV 05/29/24 23:59 INFUSION RONNY IV Miscellaneous Supplies 1 each 05/29/24 06:00 Iv Access IV 05/29/24 23:59 DIRECTED RONNY Sodium Chloride 0 ml 05/29/24 06:00 Normal Saline Flush 10 Ml Syr IV 05/29/24 23:59 PRN PRN Sodium Chloride 0 ml 05/29/24 06:00 Normal Saline 10 Ml Vial IJ 05/29/24 23:59 DIRECTED PRN Sterile Water 0 ml 05/29/24 06:00 Water,Injection,Sterile 10 Ml Vial IJ 05/29/24 23:59 DIRECTED PRN PFSH Active Problems Active Problems: Problem Status Onset Code Endometrial mass Acute N94.89 History of Chronic Z98.891 Abnormal Pap smear of cervix Acute R87.619 High risk human papillomavirus (HPV) DNA test positive Acute R87.89 Dyspareunia in female Acute N94.10 Dysuria Acute R30.0 DUB (dysfunctional uterine bleeding) Acute N93.8 Fatigue Acute R53.83 Vaginitis Acute N76.0 Cervical cancer screening Acute Z12.4 Routine screening for STI (sexually transmitted infection) Acute Z11.3 Medical History Medical History Helicobacter pylori infection Gastritis Gallstone Reflux esophagitis Surgical History Surgical History Cholecystectomy Tobacco Smoking/Tobacco Use Status: Never Passive smoking exposure: No Alcohol Alcohol Intake: current Alcohol intake frequency: a few times a month Substance Use Substance use: Never Substance use type: does not use Prental History History 2 1 Para 1 Hx # Term Pregnancies Multiple births Hx # Pregnancies Ectopic pregnancies AB induced Hx Number of Living Children AB spontaneous Past Pregnancies Del. Date GA/Weeks # Preg Succ Route Wgt Sex Labor Lgth Anesth esia Location Prov Complic 09/15/10 No Yes 3175.147 g Male Delivery Date: 09/15/10 Last Updated by: Alicia Neal LPN [place]- full term Vital Signs and Lab Results Vital Signs Most Recent Vital Signs in EMR: Most Recent Vital Signs Temp Pulse Resp BP Pulse Ox 36.6 C 79 20 124/80 97 05/29/24 06:38 05/29/24 06:38 05/29/24 06:38 05/29/24 06:38 05/29/24 06:38 Lab Results Blood Type / Crossmatch: 2 Antibody Screen NEGATIVE 05/27/24 Complete Blood Count: 2 White Blood Count 7.83 10^3/uL (4.4-10.8) 05/27/24 16:10 Red Blood Count 5.05 10^6/uL (3.93-5.22) 05/27/24 16:10 Hemoglobin 15.2 g/dL (11.2-15.7) 05/27/24 16:10 Hematocrit 44.1 % (36.0-46.0) 05/27/24 16:10 Platelet Count 387 10^3/uL (130-400) 05/27/24 16:10 Complete Metabolic Panel: 2 No Data to Display Liver Function Panel: 2 No Data to Display Coagulation Panel: 2 No Data to Display Cardiac Panel: 2 No Data to Display Arterial Blood Gas: 2 No Data to Display Venous Blood Gas: 2 No Data to Display Pancreas Panel: 2 No Data to Display Thyroid Panel: 2 No Data to Display Infectious Disease: 2 No Data to Display Blood Cultures: 2 No Data to Display Toxicology Panel: 2 No Data to Display Panel: 2 Urine HCG, Qualitative Negative 05/03/24 08:35 Anesthesia Assessment and Plan Anesthesia History Personal History: No History of Anesthesia Complications Family History: No Family History of Anesthesia Complications Exercise Tolerance Exercise Tolerance: Metabolic Equivalents>4 Pertinent Negatives Pertinent Negatives: No Major Cardiovascular Symptoms or Complaints, No Major Pulmonary Symptoms or Complaints and No History of CVA/TIA Cardiac & Pulmonary Exam Cardiac Exam: Normal S1/S2 Heart Sounds Pulmonary Exam: Clear Bilateral Breath Sounds Implantable Cardiac Device Does patient have a Pacemaker or an ICD?: No Airway Exam Known Difficult Airway: No Mallampati Class: 2 Mouth Opening: Normal (> 3cm) Thyromental Distance: Greater than 3 cm Neck Range of Motion: Full ROM Neck Circumference: Normal Teeth Condition: Normal Dentition Tooth Numberin 1. Missing 2. Missing ASA Classification ASA Score: ASA 2 Emergency Case?: No NPO Status NPO Status: NPO Clears >2 hours, Solids >8 hours Status Status: Negative HCG Anesthesia Plan Resuscitation Status: Full Code Anesthesia Technique: General Anesthesia Airway Planned: Endotracheal Tube Monitors Used: Standard Monitors Preoperative Comments:: Active mild GERD symptoms today. Actively with with PCP on GERD management; plan to intubate today to secure airway.
[2024-05-29] MEDS: Lactated Ringers 1,000 ML 125 ML IV (07:27)
--- NOTE | 2024-05-29 08:10 | ENDO_PTH ---
PATIENT: Sena Child LOC: [facility] U#:[id number] AGE/SX: 49/F ROOM: RE05/29/[address]: Alicia Obrien DO : 1975 BED: DIS: 05/29/2024 SPEC #: [id number] RECD: 05/29/24 12:54 STATUS: GERARD REQ #: [id number] ZAK: 05/29/24 08:[address]: Alicia Obrien DEPT: Surgical Specimen RECD BY: Yohana Granado ENTERED: 05/29/24 12:55 SP TYPE: Endo OTHR DR: Miriam Wright Tissues: 1 - ENDOCERVICAL BX/CURRETTE 2 - ENDOMETRIUM BX/CURRETTE Procedures: GROSS AND MICRO LEVEL 4 Comments: [id number]
--- NOTE | 2024-05-29 08:27 | W.PM.OP ---
Operative Note Operative Note PRE-OP DIAGNOSIS: Abnormal uterine bleeding, abnormal ultrasound POST-OP DIAGNOSIS: same PROCEDURE: Hysteroscopy, fractional dilation and curettage SURGEON: Alicia Obrien ANESTHESIA TYPE: General LMA/ETT Refer to Anesthesia Record ESTIMATED BLOOD LOSS: 10 PATHOLOGY: other (1. Endocervical curettage 2. Endometrial curettage) COMPLICATIONS: None Patient was transported to: PACU Patient's condition: stable Indications: Ongoing heavy menstrual bleeding, abnormal ultrasound finding with a 2 cm vascular lesion at the uterine fundus. Not visualized on hysteroscopy. Findings: Uterus approximately 6 to 8 weeks size, smooth regular endocervix. Smooth regular endometrium. Tubal ostia visualized bilaterally. No intrauterine lesion noted. Procedure Description: After full informed consent was obtained and negative status verified, patient was taken the operating suite with an IV running. She was placed in the supine position and endotracheal intubation performed via anesthesia for administration of anesthetic throughout her case. She was then placed in the modified dorsolithotomy position and prepped and draped in the usual sterile fashion. Exam under anesthesia revealed a uterus that was midline and mobile without evidence of adnexal masses. A timeout was held. She had pneumatic compression stockings for DVT prophylaxis. No antibiotic prophylaxis was warranted. At this point, speculum was inserted into the vaginal vault and the cervical os identified. A single-tooth tenaculum was used to gently grasp the anterior lip of the cervix and the cervical os dilated to the point that a 5 mm hysteroscope could be passed without difficulty. With instillation of normal saline, the entire endocervical and endometrial cavity was visualized. There was no evidence of polyp or fibroid noted. The uterine cavity was smooth and regular. Tubal ostia appeared normal bilaterally. At this point the hysteroscope portion was terminated with a total fluid deficit approximately 140 cc, however there was a significant amount of fluid underneath the drape not returned. At this point, endocervical curettage was performed, followed by endometrial curettage for scant tissue in both specimens. Single-tooth tenaculum was removed and the puncture sites were hemostatic. Speculum was removed from the vaginal vault and the patient was returned to the dorsal supine position. She woke from anesthesia without difficulty and was taken to the postanesthesia care unit in stable condition. Findings: Smooth regular endometrium and endocervix with no intrauterine lesion noted. Fluids: Crystalloid per anesthesia +140 cc of recollected fluid deficit, however significant fluid was underneath the drape and not recollected. Complications: None apparent Pathology: 1. Endocervix 2. Endometrium Date of Procedure: 05/29/24
[2024-05-29] MEDS: ACETAMINOPHEN 1,000 MG/100 ML BAG 400 MG IVPB (08:37)
--- NOTE | 2024-05-29 09:23 | W.ANESPOSTOP ---
Postoperative Evaluation Date, Time and Location Date Performed: 05/29/24 Time Performed: 09:23 Patient Location: PACU Vital Signs Most Recent Imported Vital Signs: Most Recent Vital Signs Temp Pulse Resp BP Pulse Ox 36.1 C L 78 18 109/77 98 05/29/24 09:03 05/29/24 09:03 05/29/24 09:03 05/29/24 09:03 05/29/24 09:03 Pain Score Most Recent Pain Score: Most Recent Pain Score Pain Level 2 05/29/24 08:57 Assessment Mental Status: Awake (Alert & Oriented to Patient Baseline) Airway and Respiratory Function: Patent airway with normal (patient baseline) respiratory exam Cardiovascular Function: Hemodynamically Stable Hydration Status: Adequately Hydrated Nausea & Vomiting: No Nausea or Vomiting Pain: Pt. Denies Any Pain Peripheral Nerve Block: Patient did not receive a nerve block
== END 2024-05-29 09:45 | disposition home or self-care (01) ==
PROVIDERS: PCP Family Medicine; Visit Provider Obstetrics & Gynecology
PROC: 0UDB8ZZ Extraction of Endometrium, Via Natural or Artificial Opening Endoscopic (ICD-10-PCS; CPT 58558; principal; 2024-05-29 07:30)
DX: N93.9 Abnormal uterine and vaginal bleeding, unspecified (principal)
CPT/HCPCS: 58558; 88305; J0131; J1885; J2003; J2250; J2704; J3475

== ENCOUNTER 2025-02-07 12:20 | Outpatient (CLI) | payer BC, SELFPAY ==
[2025-02-07 14:13] LABS: ALT 33 U/L (10-49); AST 28 U/L (<34); Albumin 4.4 g/dL (3.2-5.0); Alkaline Phosphatase 78 U/L (46-116); Anion Gap 11 mmol/L (3-11); BUN 10 mg/dL (9-23); Bilirubin, Total 0.5 mg/dL (0.2-1.2); CO2 24.0 mmol/L (20.0-31.0); Calcium 8.8 mg/dL (8.3-10.6); Chloride 105 mmol/L (98-107); Glucose 81 mg/dL (74-106); Potassium 4.3 mmol/L (3.5-5.1); Sodium 140 mmol/L (136-145); Total Protein 7.7 g/dL (5.7-8.2)
[2025-02-07 23:56] LABS: Ferritin 16 ng/mL (7-271); Iron 69 ug/dL (50-170); Total Iron Binding Capacity 357 ug/dL (250-425); Transferrin Sat 19 % (15-50)
== END 2025-02-07 12:21 | disposition home or self-care (01) ==
LOC: LBO 12:20
PROVIDERS: PCP Family Medicine; Visit Provider Student in an Organized Health Care Education/Training Program
DX: Z83.79 Family history of other diseases of the digestive system (principal)
CPT/HCPCS: 36415; 80053; 82728; 83540; 83550